=== PATIENT | female | born 1945 | race Caucasian/White ===

== ENCOUNTER 2017-07-29 15:51 | Outpatient (CLI) | payer MEDICARE, OTHER ==
--- NOTE | 2017-07-30 10:37 | MRI ---
MRI CERVICAL SPINE WITHOUT CONTRAST: HISTORY: Neck pain with pain radiating down both arms and hands. Cervical radiculopathy. COMPARISON: None. TECHNIQUE: A cervical spine MRI was performed without contrast administration. Multisequential, multiplanar im aging was performed. FINDINGS: Appropriate T1 marrow signal intensity of the cervical vertebrae. Cervical spine vertebral body hei ght is maintained. No fracture. No significant STIR hyperintensity to suggest vertebral body edema or ligamentous injury. The visualized brain parenchyma, cervical-medullary junction, cervical cord, and upper thoracic cord have normal size and signal intensity. C2-C3: No significant disk osteophyte complex. No significant central canal stenosis. The neural foramina are patent. C3-C4: No significant disk osteophyte complex. No significant central canal stenosis. Degenerativ e change in the bilateral uncovertebral joints results in mild bilateral foraminal narrowing. C4-C5: Broad-based disk osteophyte complex abuts the thecal sac. No significant central canal sten osis. Degenerative changes in the bilateral uncovertebral joints results in moderate right and mild to moderate left foraminal narrowing. C5-C6: Broad-based disk osteophyte complex abuts the thecal sac. No high grade central canal steno sis. Degenerative changes of the bilateral uncovertebral joint results in moderate right and mild l eft foraminal narrowing. C6-C7: There is a broad-based disk osteophyte complex without significant central canal stenosis. Degenerative changes of the right uncovertebral joint result in moderate right foraminal narrowing. Mild left foraminal narrowing. C7-T1: No significant disk osteophyte complex. No significant central canal stenosis. The neural foramina are patent. IMPRESSION: Degenerative changes in the cervical spine as above. POS: [facility]
== END 2017-07-29 15:52 | disposition home or self-care (01) ==
LOC: MRI 15:51 → MERGE 16:15
PROVIDERS: ATTEND Neurological Surgery
DX: M47.22 Other spondylosis with radiculopathy, cervical region (principal)
CPT/HCPCS: 36415; 72141; 80053; 85027

== ENCOUNTER 2017-08-02 09:26 | Outpatient (CLI) | payer MEDICARE, OTHER ==
--- NOTE | 2017-08-02 10:32 | BD ---
BONE DENSITOMETRY USING DEXA: Date: 08/02/17 HISTORY: Postmenopausal screening for osteoporosis. FINDINGS: Lumbar Spine: BMD (g/cm2) L1 0.967 T-Score: -0.2 Z-Score: 1.8 L2 1.245 T-Score: 2.0 Z-Score: 4.2 L3 1.194 T-Score: 1.0 Z-Score: 3.4 L4 1.246 T-Score: 1.7 Z-Score: 4.1 L1-L4 1.167 T-Score: 1.1 Z-Score: 3.4 Femoral Neck: 0.828 T-Score: -0.2 Z-Score: 1.8 Total Femur: 0.894 T-Score: -0.4 Z-Score: 1.3 IMPRESSION: Normal bone mineral density. No evidence of osteopenia/osteoporosis. POS: [facility]
== END 2017-08-02 09:27 | disposition home or self-care (01) ==
LOC: MAMMO 09:26
PROVIDERS: ATTEND Family Medicine
DX: Z13.820 Encounter for screening for osteoporosis (principal); M85.89 Other specified disorders of bone density and structure, multiple sites
CPT/HCPCS: 77080

== ENCOUNTER 2017-08-25 14:48 | Outpatient (CLI) | payer MEDICARE, OTHER ==
[2017-08-25 16:21] LABS: Hematocrit 34.4 % (36.0-47.0); Mean Platelet Volume 7.7 fL (7.4-10.4); Red Blood Cell (RBC) Count 3.16 mill/uL (4.20-5.40); White Blood Cell (WBC) Count 7.3 thou/uL (4.8-10.8)
[2017-08-25 16:33] LABS: Anion Gap 12 mmol/L (10-20); BUN (Urea Nitrogen) 19 mg/dL (9.8-20.1); Calc. Creatinine Clearance 0 mL/min (70-130); Calcium 9.5 mg/dL (7.8-10.44); Carbon Dioxide 26 mmol/L (23-31); Chloride 108 mmol/L (98-107); Estimated GFR-MDRD 66
== END 2017-08-25 14:49 | disposition home or self-care (01) ==
LOC: LABBT 14:48
PROVIDERS: ATTEND Neurological Surgery
DX: Z01.818 Encounter for other preprocedural examination (principal); M54.12 Radiculopathy, cervical region
CPT/HCPCS: 80048; 85027

== ENCOUNTER 2017-10-12 12:37 | Outpatient (CLI) | payer MEDICARE, OTHER ==
--- NOTE | 2017-10-12 14:02 | RAD ---
CERVICAL SPINE THREE VIEWS: HISTORY: Surgery in August 2017. COMPARISON: MRI from 07/29/2017. FINDINGS: The patient is status post ACDF at C4-C6. There are diskectomy changes with early osseous incorporat ion. No displacement of the disk cages. Moderate facet arthrosis at C3-C4 and C4-C5. No listhesis. Moderate degenerative disk space disease and sclerosis with osteophyte formation at C6-C7. There are surgical clips in the left neck. IMPRESSION: Satisfactory appearance of anterior cervical diskectomy and fusion at C4-C6 without hardware complica tion. POS: [facility]
== END 2017-10-12 12:38 | disposition home or self-care (01) ==
LOC: TBSIIMAG 12:37
PROVIDERS: ATTEND Neurological Surgery
DX: M54.12 Radiculopathy, cervical region (principal); Z98.1 Arthrodesis status
CPT/HCPCS: 72040

== ENCOUNTER 2017-12-20 15:34 | Outpatient (CLI) | payer MEDICARE, OTHER | END 2017-12-20 15:35 | disposition home or self-care (01) | LOC: BICMAMMO 15:34 | PROVIDERS: ATTEND Family Medicine | DX: Z12.31 Encounter for screening mammogram for malignant neoplasm of breast (principal); N64.89 Other specified disorders of breast | CPT/HCPCS: 77063; 77067 ==

== ENCOUNTER 2017-12-21 07:48 | Outpatient (CLI) | payer MEDICARE, OTHER ==
[2017-12-21] MEDS ORDERED: Gadobenate Dimeglumine 529 MG/1 ML (20ML VIAL) ONE (12:52)
--- NOTE | 2017-12-21 13:07 | MRI ---
MRI LUMBAR SPINE WITH AND WITHOUT IV CONTRAST: 12/21/2017 HISTORY: Lumbar radiculopathy. The patient states right leg and back pain for a few months. History of back surgery in June. COMPARISON: Noncontrast MRI lumbar spine on 06/10/2017. FINDINGS: There is an increased T2-weighted signal intensity structure seen at the anterior aspect, inferior po le, right kidney, demonstrating characteristics most consistent with a cyst. This was also present o n the prior MRI examination, as well as CT abdomen on 05/10/2015. There is partial visualization of intrahepatic and extrahepatic biliary ductal dilatation; however, C T abdomen on 05/10/2015 demonstrated post cholecystectomy changes with biliary ductal dilatation on t hat exam. Findings were likely related to reservoir effect. There is question of a tiny filling def ect within a dilated posterior segment right hepatic duct, which could potentially represent a tiny c alculus within the duct, although it is difficult to adequately evaluate on this exam. The conus medullaris is normal in appearance and terminates at the level of the L1 vertebral body. There is a rounded focus of increased T1 and T2 weighted signal intensity present in the T11 vertebra l body, most compatible with a hemangioma. Endplate degenerative changes are seen at multiple levels with degenerative changes again seen throughout the lumbar spine. There is right convex scoliosis o f the lumbar spine. Tarlov cysts are again seen, posterior to the S2 and S3 vertebral bodies. Again noted is mild aneurysmal dilatation of the infrarenal abdominal aorta, which measures 3.4 cm in greatest transverse dimension. This was also present on the CT exam in 2014. L1-L2: There is mild broad-based disk bulge, resulting in very slight effacement of the ventral aspe ct of the thecal sac. The neural foramina are patent. L2-L3: There is loss of intervertebral disk height. A broad-based disk osteophyte complex is again present. There is mild left-sided neural foraminal narrowing with only minimal encroachment of the r ight neural foramen, which is a stable finding. L3-L4: There is loss of intervertebral disk height. There is a broad-based disk osteophyte complex with moderate facet hypertrophic changes and ligamentous thickening. There is moderate narrowing of the central spinal canal with mild to moderate left-sided neural foraminal narrowing and mild right-s ided neural foraminal narrowing. L4-L5: Again noted is a broad-based disk osteophyte complex and facet hypertrophic changes. Promine nt endplate degenerative changes are present at this level. There is mild left-sided neural foramina l narrowing with moderate to severe right-sided neural foraminal narrowing, but the degree of foramin al narrowing is similar to the prior study. L5-S1: There is loss of intervertebral disk height with endplate degenerative changes. There is a b road-based disk osteophyte complex and facet degenerative changes. A small central disk protrusion i s present. This central disk protrusion does result in mild mass effect on the central aspect of the ventral portion of the thecal sac. Moderate bilateral neural foraminal narrowing is present, greate r on the left. There is a right laminotomy defect at L5 with enhancement in this region, suggesting scar tissue seen posterior to the right lamina and along the spinous process on the right; however, this enhancement does not extend into the central canal, and this area of enhancement is most suggestive of scarring. Similar enhancement is seen at the L5-S1 level, again related to scarring in the soft tissues moving worker ior to the L5 vertebral body. IMPRESSION: 1. Multilevel degenerative changes, which have not progressed when compared to the prior exam in 201 7. 2. Post surgical changes at the L4-L5 level, related to laminotomy defect with enhancement in the so ft tissues posterior to the vertebral body on the right, related to scarring. 3. Right convex scoliosis of the lumbar spine. 4. Infrarenal abdominal aortic aneurysm, seen on prior CT exam in 2017. 5. Right renal cyst. POS: [facility]
== END 2017-12-21 07:49 | disposition home or self-care (01) ==
LOC: MRI 07:48
PROVIDERS: ATTEND Neurological Surgery
DX: M47.26 Other spondylosis with radiculopathy, lumbar region (principal); I71.4 Abdominal aortic aneurysm, without rupture; N28.1 Cyst of kidney, acquired; Z98.1 Arthrodesis status
CPT/HCPCS: 72158; 82565; A9579

== ENCOUNTER 2017-12-23 10:49 | Outpatient (CLI) | payer MEDICARE, OTHER ==
--- NOTE | 2017-12-23 13:55 | CT ---
CT LUMBAR SPINE WITHOUT CONTRAST: Date: 12/23/17 HISTORY: Lumbar radiculopathy. Low back pain with fall from kitchen cabinet 2 years ago. Previous surgery. COMPARISON: None. CORRELATION: Lumbar spine MRI dated 12/21/17. TECHNIQUE: Lumbar spine CT is performed without contrast. Sagittal and coronal reformatted images are submitted for interpretation. FINDINGS: Visualized lung bases are clear. No retroperitoneal mass, lymphadenopathy, or hematoma. Previous kavya atric surgical changes are suspected. Gallbladder is surgically absent. Nonobstructing calcifications in the right renal pelvis. Symmetric attenuation of the psoas muscles. No retroperitoneal mass, lymp hadenopathy, or hematoma. There is atherosclerosis of an upper normal abdominal aorta, incompletely e valuated. Vacuum disc phenomenon at L2-L3, L4-L5, and L5-S1. 3.3 mm of anterolisthesis of L3 upon L4. Lumbar spine vertebral body height is maintained. No fracture. There are degenerative changes involvi ng the posterior elements at L3, L4, and L5. Limited evaluation of the contents of the central spinal canal and neural foramina due to technique. Please refer to recent MRI for further detail. T11-T12 and T12-L1: No high grade central canal stenosis or high grade foraminal narrowing. L1-L2: No high grade central canal stenosis or high grade foraminal narrowing. L2-L3: Vacuum disc phenomenon. Generalized disc bulge. Mild central canal stenosis. Right neural foramen is patent. Mild left foraminal narrowing. L3-L4; Mild loss of disc space height. Generalized disc bulge, ligamentum flavum thickening, and facet hyper trophy result in mild central canal stenosis. Right neural foramen is patent. Mild to moderate left f oraminal narrowing. L4-L5: Vacuum disc phenomenon. Generalized disc bulge. No high grade central canal stenosis. Severe right an d mild left foraminal narrowing. L5-S1: Disc desiccation with severe loss of disc space height. Generalized disc bulge without high grade vasyl tral canal stenosis. Moderate bilateral foraminal narrowing. There is hypodensity in the central aspect of the S1 level, compatible with a prominent thecal sac. IMPRESSION: Degenerative changes of the lumbar spine as above. Please refer to lumbar spine MRI for further detai l. POS: [facility]
== END 2017-12-23 10:50 | disposition home or self-care (01) ==
LOC: TBSIIMAG 10:49
PROVIDERS: ATTEND Neurological Surgery
DX: M47.26 Other spondylosis with radiculopathy, lumbar region (principal)
CPT/HCPCS: 72131

== ENCOUNTER 2017-12-28 14:22 | Outpatient (CLI) | payer MEDICARE, OTHER | END 2017-12-28 14:23 | disposition home or self-care (01) | LOC: BICMAMMO 14:22 | PROVIDERS: ATTEND Family Medicine | DX: N64.89 Other specified disorders of breast (principal) | CPT/HCPCS: 77065; G0279 ==

== ENCOUNTER 2018-02-04 13:01 | Inpatient (IN) | payer MEDICARE, OTHER ==
--- NOTE | 2018-02-04 13:19 | CT ---
CT OF HEAD NONCONTRAST: Clinical history: Left sided facial droop and slurred speech. Comparison: 08-05-[address] FINDINGS: There is a focal region of encephalomalacia localizing to the posterior division of the left MCA terr itory with surrounding white matter hypointensity indicating additional gliosis. No evidence of intra cranial hemorrhage or mass effect or midline shift. Ventricular system is within normal limits of siz e. IMPRESSION: 1. Encephalomalacia of the left cerebral hemisphere. 2. No acute intracranial lesion or mass effect. 3. Telephone call with findings placed to ER physician, Dr. Becerril, at 1313 hours 02-04-18. Code CR POS: [facility]
--- NOTE | 2018-02-04 13:40 | CT ---
CTA HEAD WITH 3D VOLUME RENDERING CTA NECK WITH 3D VOLUME RENDERING: CLINICAL HISTORY: Stroke, left side facial droop, slurred speech. FINDINGS: CT imaging of the head and neck performed. There is atherosclerosis at the imaged aortic arch and in volving the origins of the great vessels. No high-grade stenosis or occlusion of the great vessel or igins is seen. There is mild atherosclerotic stenosis of the proximal aspect of the left subclavian artery by soft plaque. The bilateral vertebral arteries reveal no high-grade stenosis or occlusion w ith convergence into a patent basilar artery. There is mild calcification at the origin of the right common carotid artery and there is calcified and noncalcified plaque suggesting mild stenosis at the distal right common carotid artery. The origin of the left common carotid artery is not visualized. The imaged left common carotid artery reveals no high-grade stenosis or occlusion. Evaluation of e ach cervical ICA reveals no significant stenosis or occlusion. There is atherosclerosis/plaque forma tion at each carotid bulb. There is calcification at each carotid siphon. Correlate for history of prior left carotid endarterectomy. The bilateral M1 segments are patent. Relative symmetric contrast opacification of distal MCA branches is seen bilaterally. There is no high-grade stenosis of the bi lateral MUKESH or ASSISTANT SURVEYOR. Incidental note of multifocal patchy opacification of the right upper lung zone indicating infectious /inflammatory process, although incompletely evaluated. Correlate clinically. Incidental note of an terior metallic fusion of the cervical spine. IMPRESSION: 1. No high-grade focal stenosis or thrombotic occlusion of the major arterial system head and neck. Scattered atherosclerosis is present. 2. Incidental note of multifocal patchy consolidation of the imaged upper right lung zone favoring i nfectious/inflammatory process. Correlate clinically. POS: [facility]
[2018-02-04 13:47] LABS: Hemoglobin 10.1 g/dL (12.0-16.0); Mean Platelet Volume 7.9 fL (7.4-10.4); Platelet Count 181 thou/uL (130-400); Red Blood Cell (RBC) Count 2.95 mill/uL (4.20-5.40); White Blood Cell (WBC) Count 14.8 thou/uL (4.8-10.8)
[2018-02-04 13:48] LABS: #Lymphocytes 0.2 thou/uL (1.20-3.40); #Monocytes 1.2 thou/uL (0.11-0.59); #Neutrophils 13.3 thou/uL (1.40-6.50); %Basophils 0.2 % (0.0-1.0); %Eosinophils 0.2 % (0.0-10.0); %Lymphocytes 1.5 % (21.0-51.0); %Monocytes 8.2 % (0.0-10.0)
[2018-02-04 13:53] LABS: INR-International Normal Ratio 1.2; Prothrombin Time 15.8 SEC (12.0-14.7)
[2018-02-04 14:08] LABS: ALT (SGPT) 7 U/L (8-55); AST (SGOT) 18 U/L (5-34); Alkaline Phosphatase 70 U/L (40-150); Anion Gap 12 mmol/L (10-20); BUN (Urea Nitrogen) 16 mg/dL (9.8-20.1); Bilirubin, Total 0.3 mg/dL (0.2-1.2); CK (CPK) 44 U/L (29-168); Calc. Creatinine Clearance 0 mL/min (70-130); Calcium 8.4 mg/dL (7.8-10.44); Carbon Dioxide 21 mmol/L (23-31); Chloride 107 mmol/L (98-107); Estimated GFR-MDRD 44; Globulin 2.3 g/dL (2.4-3.5); Glucose 172 mg/dL (83-110); Potassium 3.3 mmol/L (3.5-5.1); Protein, Total 5.3 g/dL (6.0-8.3); Sodium 137 mmol/L (136-145)
[2018-02-04 14:10] LABS: MDiff Complete? YES; Macrocytosis SLIGHT = 6-15 cells (100X) (0-5/hpf); Mean Corpuscular HGB CONC 32.1 g/dL (32.0-36.0); Mean Corpuscular Hemoglobin 34.1 pg (27.0-31.0); PLT Morphology Comment Appears Adequate
[2018-02-04 14:17] LABS: CKMB 0.6 ng/mL (0-6.6); Troponin I 0.019 ng/mL (< 0.028)
--- NOTE | 2018-02-04 14:25 | RAD ---
PORTABLE CHEST 1 VIEW: DATE: 02/04/18. TIME: 2:03 p.m. HISTORY: Infiltrate on CT. FINDINGS: The heart size is normal. The lungs are expanded. There are patchy infiltrates in the right mid and lower lung aleman. No pneumothoraces or pleural effusions are seen. IMPRESSION: Findings are suspicious for right-sided pneumonia. POS: [facility]
[2018-02-04] MEDS ORDERED: Azithromycin 500 MG VIAL ONE (14:36)
[2018-02-04] MEDS ORDERED: Acetaminophen 500 MG TAB ONE (15:25)
[2018-02-04] MEDS ORDERED: Ondansetron ODT 4 MG TAB SL PRN (15:57)
[2018-02-04] MEDS ORDERED: Ondansetron HCl/PF 4 MG/2 ML Vial IVP PRN (15:57)
[2018-02-04] MEDS ORDERED: Sodium Chloride 0.9% 1,000 ML IV SCH (15:57)
[2018-02-04] MEDS ORDERED: Acetaminophen 325 MG TAB PO PRN (15:57)
--- NOTE | 2018-02-04 15:57 | PDOC.FPRHP ---
- History of Present Illness Chief Complaint: Severe chills, Slurred Speech, Dizzy, Weak History of Present Illness: This is a 72 yo female who comes in with complaints of waking up and having nonunderstandable speech, severe chills, dizziness, and weakness. Sister reports her looking more tired yesterday. Pt reports having cough for last month. Says had productive clear sputum. Reports that last few days having increased SOB with exertion. Did not think much of it, thought it was sinuses. Pt has pmh of Stroke in 2006 in which she has some R. sided defecits. Family says she does get slurred speech when she gets tired. yet, they stated the speech change today was much worse and different. Pt also has hx of CEA of left carotid and having stenosis in R. carotid but no severe enough for surgery. She denied any fevers. Pt reports having n/v/d/c but that it is chronic and related to multiple abdominal surgeries and chron's dz. Denied any chest pain. Denied any nasal congestion. Reports being week. ED Course: 2 boluses fluid - Allergies/Adverse Reactions Allergies Allergy/AdvReac Type Severity Reaction Status Date / Time metoclopramide [From Reglan] Allergy Intermediate "MAKES HER Verified 07/05/17 14:25 HYPER" metronidazole [From Flagyl] Allergy Intermediate DIZZY, Verified 07/05/17 14:25 LIGHTHEADED Penicillins Allergy Intermediate Rash Verified 07/05/17 14:25 pregabalin [From Lyrica] Allergy Intermediate MOUTH Verified 07/05/17 14:25 SWELLING - Home Medications Medication Instructions Recorded Confirmed Type Aspirin [Aspir-Low] 81 mg PO DAILY 07/05/17 02/04/18 History Calcium Carbonate [Calcium] 1,500 mg PO DAILY 07/05/17 02/04/18 History Dicyclomine [Bentyl] 20 mg PO QID 07/05/17 02/04/18 History Diphenoxylate HCl/Atropine 2 tab PO QID PRN 07/05/17 02/04/18 History [Lomotil] Estradiol 1 mg PO DAILY 07/05/17 02/04/18 History Hyoscyamine Sulfate 0.125 mg PO Q4H PRN 07/05/17 02/04/18 History Ipratropium 0.06% Nasal Inhale 2 spray INH TID 07/05/17 02/04/18 History [Atrovent 0.06% Nasal [place]] Levothyroxine Sodium 50 mcg PO DAILY 07/05/17 02/04/18 History Loperamide HCl [Imodium A-D] 2 mg PO PRN PRN 07/05/17 02/04/18 History Metoprolol Tartrate [Metoprolol 12.5 mg PO BID 07/05/17 02/04/18 History Tartrate] Mirtazapine [Remeron] 15 mg PO HS 07/05/17 02/04/18 History Multivitamin [Daily Multiple 1 each PO DAILY 07/05/17 02/04/18 History Vitamin] Omeprazole [Omeprazole] 40 mg PO DAILY 07/05/17 02/04/18 History Ramipril [Altace] 5 mg PO HS 07/05/17 02/04/18 History Rosuvastatin Calcium [Rosuvastatin 20 mg PO HS 07/05/17 02/04/18 History Calcium] Sertraline HCl [Zoloft] 100 mg PO DAILY 07/05/17 02/04/18 History Tramadol HCl [Tramadol HCl] 50 mg PO BID PRN 07/05/17 02/04/18 History azaTHIOprine [Azathioprine] 50 mg PO DAILY 07/05/17 02/04/18 History - History PMHx:Chron's Dz, Aneurysm in Stomach, PARIKH 2003, Stroke 2006 w/ R. sided weakness , Macrocytic Anemia of unknown cause, Depression PSHx: 1/ stomach removed (90s), Large Bowel Resection 2010 due to adhesions, CEA of Left carotid, Back Surgery 2016, Neck Surgery 2016, Cholecystectomy, Hysterectomy, FHx: Insignificant Social: Smoked 50+ years, quit 6 yrs ago. No alcohol, No illicit drug use - Review of Systems General: reports: fever/chills, fatigue. denies: weight/appetite/sleep changes , night sweats Eyes: denies: eye pain, vision changes, other ENT: denies: nasal congestion, rhinorrhea, other Respiratory: reports: cough, shortness of breath. denies: exercise intolerance , other Cardiovascular: denies: chest pain, palpitation, edema, paroxysmal nocturnal dyspnea, orthopnea Gastrointestinal: reports: nausea, vomiting, diarrhea, constipation, abdominal pain. denies: GI bleeding Genitourinary: denies: incontinence, dysuria, polyuria, discharge Skin: denies: rashes, lesions, jaundice, itching Musculoskeletal: denies: pain, tenderness, stiffness, swelling, arthritis/ arthralgias, other Neurological: denies: numbness, syncope, seizure, weakness, other Psychological: reports: depression. denies: anxiety, other - Vital signs T 97.7, P 80, RR 17, O2 96% on 2L. BP 92/50 - Physical Exam Constitutional: NAD, awake, alert and oriented, well developed HEENT: normocephalic and atraumatic, PERRLA, EOMI, conjunctiva clear, MMM Neck: supple, trachea midline, no LAD, no JVD, no thyromegaly, no bruits Chest: no-tender to palpation, no lesions Heart: RRR, normal S1/S2, no murmurs/rubs/gallops, pulses present, no edema -Lungs: Mild wheezing noted. Decreased breath sounds noted on R. side. R. side with crackles Abdomen: soft, non-tender, bowel sounds present, no masses/distention Neurological: normal sensation -Neurological: CN 7 affected. L. side facial droop noted. Some slow speech Skin: no rash/lesions, good turgor, capillary refill <2 seconds Heme/Lymphatic: no unusual bruising or bleeding Psychiatric: normal mood and affect, good judgment and insight, intact recent and remote memory FMR H&P: Results - Labs Result Diagrams: 02/04/18 13:36 02/04/18 13:36 Lab results: WBC 14.8 thou/uL (4.8-10.8) H 02/04/18 13:36 Hgb 10.1 g/dL (12.0-16.0) L 02/04/18 13:36 Hct 31.4 % (36.0-47.0) L 02/04/18 13:36 MCV 106.0 fl (81.0-99.0) H 02/04/18 13:36 Plt Count 181 thou/uL (130-400) 02/04/18 13:36 Neutrophils % 90.0 % (42.0-75.0) H 02/04/18 13:36 Sodium 137 mmol/L (136-145) 02/04/18 13:36 Potassium 3.3 mmol/L (3.5-5.1) L 02/04/18 13:36 Chloride 107 mmol/L (98-107) 02/04/18 13:36 Carbon Dioxide 21 mmol/L (23-31) L 02/04/18 13:36 BUN 16 mg/dL (9.8-20.1) 02/04/18 13:36 Creatinine 1.21 mg/dL (0.6-1.1) H 02/04/18 13:36 Glucose 172 mg/dL (83-110) H 02/04/18 13:36 Lactic Acid 3.1 mmol/L (0.5-2.2) H 02/04/18 13:36 Calcium 8.4 mg/dL (7.8-10.44) 02/04/18 13:36 Total Bilirubin 0.3 mg/dL (0.2-1.2) 02/04/18 13:36 AST 18 U/L (5-34) 02/04/18 13:36 ALT 7 U/L (8-55) L 02/04/18 13:36 Alkaline Phosphatase 70 U/L (40-150) 02/04/18 13:36 Creatine Kinase 44 U/L (29-168) 02/04/18 13:36 CK-MB (CK-2) 0.6 ng/mL (0-6.6) 02/04/18 13:36 Serum Total Protein 5.3 g/dL (6.0-8.3) L 02/04/18 13:36 Albumin 3.0 g/dL (3.4-4.8) L 02/04/18 13:36 - Radiology Interpretation Chest x-ray Status: image reviewed by me, report reviewed by me (cxray concerning for r. side pna) CT scan - head Status: image reviewed by me, report reviewed by me (CT head neg, old stroke findings. CTA head neck shows no acute blockage or change) FMR H&P: A/P - Problem List (1) Sepsis Current Visit: Yes Status: Acute Code(s): A41.9 - SEPSIS, UNSPECIFIED ORGANISM (2) Community acquired pneumonia Current Visit: Yes Status: Acute Code(s): J18.9 - PNEUMONIA, UNSPECIFIED ORGANISM (3) History of tobacco use Current Visit: Yes Status: Acute Code(s): Z87.891 - PERSONAL HISTORY OF NICOTINE DEPENDENCE (4) Acute Crohn's disease Current Visit: Yes Status: Acute Code(s): K50.90 - CROHN'S DISEASE, UNSPECIFIED, WITHOUT COMPLICATIONS (5) History of CVA with residual deficit Current Visit: Yes Status: Acute Code(s): I69.30 - UNSPECIFIED SEQUELAE OF CEREBRAL INFARCTION (6) Macrocytic anemia Current Visit: Yes Status: Acute Code(s): D53.9 - NUTRITIONAL ANEMIA, UNSPECIFIED - Plan 1. sepsis 2/2 CAP-no hx of recent hospitalization, coming from home, Azithro and Rocephin. Urine Strep/Legionella pending. will adjust tx accordinlgy Received 2 boluses in ER. NS@150 ml/hr. Will continue to monitor HR Will follow lactic acid for sepsis CBC am -Cxray shows concern for R. side infectious process 2. Possible CVA vs. TIA-L. sided facial droop with speech defecit reported by family Will obtain MRI in AM given high risk with previous known CAD and hx of CVA. -consult neurology -ON ASA and statin- continue for now allow for permissive htn to 220/120. check FLP, A1c, TSH 3. Chrons-not in exac, will continue home meds 4. Hypothyroidism-continue home synthroid 5. Depression-continue home meds 6. CAD-continue statin, asa 7. Hld-continue statin 8. Htn- hold for now given above FMR H&P: Upper Level - Pertinent history Pt is a pleasant 72 yo F w/PMH of Chron's, Hx of [place], CVA who presents to the ED with 1 mo hx of cough and 1 day hx of L sided facial droop. Here is ED with sister and niece, they report that she has been very weak and hx of CVA with R sided deficit but noticed L facial droop and were worried about a stroke so brought her in. Reports wet cough that has been worsening, subjective chills, Tmax of 101 in ED. Denies PND, orthopnea, reports some diffuse mild abdominal pain on exam but non-tender. CXR in ED shows R sided consolidation. Brain CT and CTA head/neck negative. Hx of L carotid endarterectomy. - Pertinent findings Tmax: 101 General: Appears in no distress, tired, coughing, appropriate hygiene and approx stated age Neck: L>R bruit, but no palpable thrill Cardiac: RRR Lungs: R base-rales, rhonchi Abdomen: soft, nontender, good bs Extremities: no cyanosis, clubbing, edema Neuro: CN II-XII intact, no cerebellar findings with testing - Plan Date/Time: 02/04/18 1556 I, Anideniz Abreu, have evaluated this patient and agree with findings/plan as outlined by development intern resident. Pertinent changes/additions are listed here. Pertinent A/P: 1. sepsis 2/2 CAP-no hx of recent hospitalization, coming from home, will continue treatment from ED of kevin and sam, will administer fluids for sepsis and recheck lactate in 3-4 hrs. Morning labs to recheck WBC 2. Possible CVA vs. TIA-do not appreciate any abnormalities on neuro exam- questionable L bottom labial droop. Will obtain MRI in AM given high risk with previous known CAD and hx of CVA. Will consult neuro if CVA is evident, for now allow for permissive htn to 220/120. Risk stratify check FLP, A1c, TSH 3. Chrons-not in exac, will continue home meds 4. Hypothyroidism-continue home synthroid 5. Depression-continue home meds 6. CAD-continue statin, asa 7. Hld-continue statin 8. Htn- hold for now given above
[2018-02-04] MEDS ORDERED: Diphenoxylate HCl/Atropine Tablet PO PRN (16:10)
[2018-02-04] MEDS ORDERED: Loperamide HCl 2 MG CAP PO PRN (16:10)
[2018-02-04] MEDS ORDERED: traMADol HCl 50 MG TAB PO PRN (16:10)
[2018-02-04] MEDS ORDERED: cefTRIAXone\\ROCEPHIN 1 GM in Sodium Chloride 0.9% 100 ML IVPB SCH (16:15)
[2018-02-04] MEDS ORDERED: ISOVUE-370 76%-LOCM 1 ML ONE (16:26)
[2018-02-04] MEDS ORDERED: Azithromycin 500 MG in Sodium Chloride 0.9% 250 ML 250 ML IVPB ONE (16:30)
[2018-02-04] MEDS: Sodium Chloride 0.9% 1,000 ML IV SCH (16:56)
[2018-02-04] MEDS: Dicyclomine 20 MG TAB PO SCH ×2 (17:01→21:19)
[2018-02-04 17:11] LABS: Legionella Urinary Ag Negative (Negative); Strep pneumo Urine Ag NEGATIVE (NEGATIVE)
[2018-02-04 17:52] LABS: Lactic Acid 2.5 mmol/L (0.5-2.2)
[2018-02-04 19:24] VITALS: BMI 20.4
[2018-02-04] MEDS: Rosuvastatin 20 MG TAB PO SCH ×2 (21:19)
[2018-02-04] MEDS: Mirtazapine 15 MG TAB PO SCH (21:19)
[2018-02-05] MEDS: Sodium Chloride 0.9% 1,000 ML IV SCH ×2 (00:09→07:23)
[2018-02-05 04:52] LABS: #Eosinphils 0.3 thou/uL (0.0-0.7); #Lymphocytes 1.2 thou/uL (1.20-3.40); #Monocytes 1.1 thou/uL (0.11-0.59); #Neutrophils 15.3 thou/uL (1.40-6.50); %Basophils 0.2 % (0.0-1.0); %Eosinophils 1.6 % (0.0-10.0); %Lymphocytes 6.9 % (21.0-51.0); %Monocytes 6.2 % (0.0-10.0); %Neutrophils 85.1 % (42.0-75.0); Hemoglobin 9.3 g/dL (12.0-16.0); Mean Corpuscular HGB CONC 33.1 g/dL (32.0-36.0); Mean Corpuscular Hemoglobin 34.8 pg (27.0-31.0); Mean Platelet Volume 7.9 fL (7.4-10.4); Platelet Count 160 thou/uL (130-400); RBC Distribution Width 12.9 % (11.5-14.5); Red Blood Cell (RBC) Count 2.66 mill/uL (4.20-5.40); White Blood Cell (WBC) Count 17.9 thou/uL (4.8-10.8)
[2018-02-05 04:59] LABS: Hemoglobin A1c 4.9 % (4.0-6.0)
[2018-02-05 05:15] LABS: ALT (SGPT) 9 U/L (8-55); AST (SGOT) 19 U/L (5-34); Alkaline Phosphatase 72 U/L (40-150); Anion Gap 9 mmol/L (10-20); BUN (Urea Nitrogen) 15 mg/dL (9.8-20.1); Bilirubin, Total 0.2 mg/dL (0.2-1.2); Calc. Creatinine Clearance 57 mL/min (70-130); Calcium 8.1 mg/dL (7.8-10.44); Carbon Dioxide 22 mmol/L (23-31); Chloride 113 mmol/L (98-107); Cholesterol 77 mg/dl (< 200 Desired); Estimated GFR-MDRD 73; Globulin 2.2 g/dL (2.4-3.5); Glucose 95 mg/dL (83-110); HDL Cholesterol 39 mg/dL (>60 Neg Risk); LDL Cholesterol, Calculated 32 mg/dL; Potassium 3.6 mmol/L (3.5-5.1); Protein, Total 5.2 g/dL (6.0-8.3); Sodium 140 mmol/L (136-145); Triglycerides 28 mg/dL (Less than 150)
[2018-02-05] MEDS: Levothyroxine Sodium 50 MCG TAB PO SCH (05:15)
--- NOTE | 2018-02-05 05:42 | PDOC.FM ---
- Subjective Subjective: Stefanie Madden seen at bedside this morning. She states that she is doing much better today compared to yesterday. States that she felt terrible yesterday morning with chills and weakness. States that her slurred speech has improved and it is common for her to get slurred speech when she is weak or ill. She denies any acute events overnight, denies fever, chills, chest pain, dyspnea, n/ v. - Objective MAR Reviewed: Yes Vital Signs & Weight: Vital Signs (12 hours) Temp Pulse Resp BP Pulse Ox 02/05/18 03:44 97.6 F 76 16 99/64 91 L 02/04/18 23:37 97.5 F L 72 16 112/56 L 94 L 02/04/18 21:26 97 02/04/18 21:18 97.5 F L 72 16 97 02/04/18 19:18 97.6 F 74 18 99/43 L 89 L Weight Weight 55.61 kg I&O: 02/03/18 02/04/18 02/05/18 06:59 06:59 06:59 Intake Total 2697 Output Total 400 Balance 2297 Result Diagrams: 02/05/18 04:36 02/05/18 04:36 <Lenny Harris - Last Filed: 02/05/18 07:53> - Objective Vital Signs & Weight: Vital Signs (12 hours) Temp Pulse Pulse Pulse Resp BP BP 02/05/18 16:00 98.5 F 62 14 02/05/18 11:30 98.0 F 79 20 02/05/18 10:46 84 83 124/65 139/75 02/05/18 08:31 98.4 F 75 16 02/05/18 07:26 98.4 F 75 16 BP Pulse Ox 02/05/18 16:00 137/74 95 02/05/18 11:30 123/59 L 93 L 02/05/18 10:46 02/05/18 08:31 90 L 02/05/18 07:26 122/61 90 L Weight Admit Weight 54.068 kg Weight 55.61 kg I&O: 02/04/18 02/05/18 02/06/18 06:59 06:59 06:59 Intake Total 2697 Output Total 400 Balance 2297 Result Diagrams: 02/05/18 04:36 02/05/18 04:36 <Lewis Aleman - Last Filed: 02/05/18 16:59> Phys Exam - Physical Examination Constitutional: NAD HEENT: moist MMs, sclera anicteric Neck: no nodes, supple, full ROM Respiratory: no wheezing, no rales, no rhonchi, clear to auscultation bilateral Cardiovascular: RRR, no significant murmur Gastrointestinal: soft, non-tender, no distention Musculoskeletal: no edema, pulses present Neurological: non-focal, normal sensation, moves all 4 limbs Psychiatric: normal affect, A&O x 3 Skin: cap refill <2 seconds <Lenny Harris - Last Filed: 02/05/18 07:53> Dx/Plan (1) Sepsis Code(s): A41.9 - SEPSIS, UNSPECIFIED ORGANISM Status: Resolved (2) Community acquired pneumonia Code(s): J18.9 - PNEUMONIA, UNSPECIFIED ORGANISM Status: Acute QualifierTitle: Laterality: right (3) History of CVA with residual deficit Code(s): I69.30 - UNSPECIFIED SEQUELAE OF CEREBRAL INFARCTION Status: Acute (4) History of Crohn's disease Code(s): Z87.19 - PERSONAL HISTORY OF OTHER DISEASES OF THE DIGESTIVE SYSTEM Status: Acute - Plan Plan: 1. sepsis 2/2 CAP-no hx of recent hospitalization, coming from home - Azithro and Rocshayhin. Urine Strep/Legionella were negative. - Received 2 boluses in ER. NS@150 ml/hr. Will continue to monitor HR - Lactic Acid downtrending 4.3 to 2.5 - WBC rising to 17.9 this morning with 85% PMNs - Cxray shows concern for R. side infectious process 2. Possible CVA vs. TIA-L. sided facial droop with speech defecit reported by family - Will obtain MRI in AM given high risk with previous known CAD and hx of CVA. - consult neurology if MRI positive - ON ASA and statin- continue - for now allow for permissive htn to 220/120. 3. Chrons-not in exac, will continue home meds 4. Hypothyroidism-continue home synthroid 5. Depression-continue home meds 6. CAD-continue statin, asa 7. Hld-continue statin 8. Htn- hold for now given above <Lenny Harris - Last Filed: 02/05/18 07:53> Attending Addendum - Attending Addendum Date/Time: 02/05/18 1612 I personally evaluated the patient and discussed the management with Dr. Harris. I agree with the History, Examination, Assessment and Plan documented above with any addition or exceptions noted below. Ms. Madden is a 72 y/o female with a PMHx of Left MCA stroke who was admitted for malaise and fatigue with increased right sided weakness, facial droop and slurred speech. She was found to have a RLL community acquired pneumonia and Dr. Reyes (neurology) evaluated her today and he believes her neuro sx's are result of toxic-metabolic encephalpathy due to sepsis from her CAP. She feels much better this a.m. and believes from a neuro standpoint she is back at baseline. Exam: T97.6, P76, R16, BP 99/64, SaO2 91, Wt 55.6 kg HEENT: WNL. mm moist. no appreciable droop to this examiner. Neck: supple no adenopathy. Lungs; CTA with decreased breath sounds R posterior base. Abd: Neg. Ext: No C/E/C/pallor. MRI Brain shows only prior stroke with encephalomalacia. No acute changes. A: Sepsis due to CAP improved. Toxic encephalopathy resolved. P: Continue Rocephin and Azithromycin. Possibly home tomorrow if continued improvement. MD Benny <Lewis Aleman - Last Filed: 02/05/18 16:59>
[2018-02-05 06:49] LABS: Lactic Acid 0.6 mmol/L (0.5-2.2)
[2018-02-05] MEDS: Dicyclomine 20 MG TAB PO SCH ×4 (08:20→20:32)
[2018-02-05] MEDS: Calcium Carbonate 500 MG TAB PO SCH (08:20)
[2018-02-05] MEDS: Multivit, Therapeutic 1 TAB PO SCH (08:20)
[2018-02-05] MEDS: Azithromycin 250 MG TAB PO SCH (08:20)
[2018-02-05] MEDS: azaTHIOprine 50 MG TAB PO SCH (08:20)
[2018-02-05] MEDS: Aspirin 81 mg Enteric Coated Tablet PO SCH (08:20)
[2018-02-05] MEDS ORDERED: Ondansetron HCl/PF 4 MG/2 ML Vial SLOW IVP PRN (10:18)
--- NOTE | 2018-02-05 10:53 | MRI ---
NONCONTRAST ENHANCED MRI IMAGES OF BRAIN: HISTORY: Stroke. FINDINGS: Noncontrast-enhanced MRI images of the brain obtained. Images demonstrate encephalomalacia and gliotic changes seen in the left parietal lobe which appears to be old. No evidence of areas of diffusion restriction seen to suggest acute strokes. Normal flow voids seen in the major intracranial vessels. No significant evidence of intracranial pa thology noted otherwise. IMPRESSION: Old left parietal area of stroke with encephalomalacia and gliotic changes. No acute intracranial pa thology is seen. POS: [facility]
[2018-02-05] MEDS ORDERED: Ondansetron ODT 4 MG TAB PO PRN (10:55)
[2018-02-05] MEDS ORDERED: Sodium Chloride 0.9% 1,000 ML IV SCH (11:00)
[2018-02-05] MEDS ORDERED: cefTRIAXone\\ROCEPHIN 1 GM, Syringe 0.4 ML in Sterile Water 9.6 ML SLOW IVP SCH (14:00)
--- NOTE | 2018-02-05 15:45 | CON ---
DATE OF CONSULTATION: 02/05/2018 REFERRING PROVIDER: Jared Emery M.D. REASON FOR CONSULTATION: Worsening right-sided weakness. HISTORY OF PRESENT ILLNESS: Ms. Madden is a pleasant 72-year-old female who has been cons ulted for evaluation of worsening right-sided weakness. Patient reports that over the past few days, she has been feeling more fatigued and tired. She has noted increasing episodes of weakness all ove r, but more so on the right side than the left. She has also had some chills and chest congestion. She notes that yesterday she had worsening weakness in her right side. She was also having increasin g difficulty with getting her words out and expressing herself. This prompted her to present to the [facility]. She does report that she has a history of stroke in 2006, which resulted in right-sided weakness and aphasia. She had recovered from her stroke and has been doing well up un til yesterday. She mentions that she has been having increasing episodes of pain in her right lower extremity when she is walking or lying down. She also has had numbness that tends to come on when sh e sits for short duration. She has had multiple falls as she is not able to control her right leg at times. She has had cervical and lumbar spine surgery done. Her lumbar spine surgery was done in and then followed by a cervical spine surgery in 08/2017. As she continued to have these episo robert of numbness and pain along with weakness and incoordination, she was supposed to be seen by me in clinic in February. 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 PAST SURGICAL HISTORY: Significant for intestinal surgery, large bowel resection in 2010 due to adhe sions, left carotid endarterectomy, lumbar spine surgery in 06/2017, cervical spine surgery in 7, cholecystectomy, and hysterectomy. FAMILY HISTORY: None significant. SOCIAL HISTORY: She is a smoker of 50+ years, but quit 6 years ago. She denies alcohol use or illic it drug use. CURRENT MEDICATIONS: Please review MAR. ALLERGIES: Include METOCLOPRAMIDE, METRONIDAZOLE, PENICILLIN, PREGABALIN. REVIEW OF SYSTEMS: As mentioned above in the HPI, otherwise negative. PHYSICAL EXAMINATION: VITAL SIGNS: Blood pressure of 123/59, pulse of 79, temperature of 98, respirations are 20, O2 sats of 93% on room air. GENERAL: Well-developed and well-nourished female in no apparent distress. RESPIRATORY: Clear to auscultation bilaterally. CARDIOVASCULAR: Regular rate and rhythm. NEUROLOGIC: Mental status: The patient is awake, alert, and oriented x3. Speech and language: Flu ent speech. Cranial nerves: Pupils are 3 mm and reactive. Visual aleman are intact. External musc les are intact. No nystagmus is noted. Face is symmetric. Tongue and uvula are midline. Motor exa m showed normal tone and bulk with 5/5 strength in both upper and lower extremities. Babinski: Plan tar responses flexion bilaterally. Sensory: Diminished sensation in both lower extremities in dista l proximal gradient. Deep tendon reflexes; 2+ reflexes in both upper extremities and 1+ reflex in jerry th the lower extremities. Romberg is positive. Gait is somewhat wide based gait. LABORATORY DATA: Reviewed, which included CBC, coag panel, CMP, lipid profile, vitamin B12, TSH, CK, CK-MB, CPK, troponin which is significant for white cell count of 17.9, hemoglobin 9.3, hematocrit 2 7.9, MCV of 105, PT of 15.8, INR 1.2, PTT of 25.0, otherwise unremarkable. IMAGING STUDIES: MRI brain without contrast was reviewed, which showed no acute intracranial abnorma lity. CT angiogram of the head and neck were reviewed, which showed no acute intracranial or extracr anial vascular abnormality. Chest x-ray results were reviewed, which showed right-sided pneumonia. IMPRESSION: 1. Right lower lobe pneumonia. 2. Worsening right-sided weakness and aphasia, likely metabolic encephalopathy secondary to #1. 3. Gait imbalance. 4. Right lower extremity numbness and weakness resulting in gait abnormality. Ms. Madden is a 72-year-old -[place] female who presented with the acute worsening of right- sided weakness and aphasia. She was found to have right lower lobe pneumonia. Her MRI brain has bee n negative for acute intracranial pathology. Her symptoms are likely secondary to toxic metabolic ef fect from pneumonia. She continued on current medical management. She has noted right lower extremi ty weakness and numbness and difficulty with gait imbalance with frequent falls that is of unknown et iology. I will see her in my clinic for EMG nerve conduction study of right lower extremity for furt her evaluation. At this time, no further neurological workup needed from my standpoint. Thank you for consultation.
[2018-02-05] MEDS: Rosuvastatin 20 MG TAB PO SCH ×2 (20:32)
[2018-02-05] MEDS: Mirtazapine 15 MG TAB PO SCH (20:32)
[2018-02-05] MEDS ORDERED: traZODone HCl 150 MG TAB PO SCH (23:45)
[2018-02-06 05:33] LABS: ALT (SGPT) 11 U/L (8-55); AST (SGOT) 21 U/L (5-34); Albumin 3.4 g/dL (3.4-4.8); Alkaline Phosphatase 88 U/L (40-150); Anion Gap 9 mmol/L (10-20); BUN (Urea Nitrogen) 10 mg/dL (9.8-20.1); Bilirubin, Total 0.3 mg/dL (0.2-1.2); Calc. Creatinine Clearance 55 mL/min (70-130); Calcium 9.4 mg/dL (7.8-10.44); Carbon Dioxide 24 mmol/L (23-31); Chloride 111 mmol/L (98-107); Estimated GFR-MDRD 70; Globulin 2.8 g/dL (2.4-3.5); Glucose 124 mg/dL (83-110); Potassium 3.7 mmol/L (3.5-5.1); Protein, Total 6.2 g/dL (6.0-8.3); Sodium 140 mmol/L (136-145)
--- NOTE | 2018-02-06 05:51 | PDOC.FM ---
- Subjective Subjective: Stefanie Madden seen at bedside this morning. Doing well, patient asked if she could go home today stating she feels well enough to be at home. She denies any chest pain, dyspnea, fever, chills, n/v. - Objective MAR Reviewed: Yes Vital Signs & Weight: Vital Signs (12 hours) Temp Pulse Resp BP Pulse Ox 02/06/18 03:43 99.0 F 114 H 16 155/77 H 93 L 02/05/18 23:57 98.9 F 102 H 16 159/89 H 96 02/05/18 20:20 98.9 F 102 H 16 94 L 02/05/18 19:20 97.9 F 85 16 143/62 H 94 L Weight Admit Weight 54.068 kg Weight 55.61 kg I&O: 02/04/18 02/05/18 02/06/18 06:59 06:59 06:59 Intake Total 2697 Output Total 400 Balance 2297 Result Diagrams: 02/06/18 04:19 02/06/18 04:19 <Lenny Harris - Last Filed: 02/06/18 06:52> - Objective Vital Signs & Weight: Vital Signs (12 hours) Temp Pulse Resp BP Pulse Ox 02/06/18 08:38 99.5 F 97 18 02/06/18 07:59 99.5 F 97 18 141/74 H 96 02/06/18 03:43 99.0 F 114 H 16 155/77 H 93 L Weight Admit Weight 54.068 kg Weight 55.61 kg I&O: 02/05/18 02/06/18 02/07/18 06:59 06:59 06:59 Intake Total 2697 480 Output Total 400 Balance 2297 480 Result Diagrams: 02/06/18 04:19 02/06/18 04:19 <Lewis Aleman - Last Filed: 02/06/18 14:03> Phys Exam - Physical Examination Constitutional: NAD HEENT: moist MMs, sclera anicteric Neck: no JVD, supple, full ROM Respiratory: no wheezing, no rales, no rhonchi, clear to auscultation bilateral Cardiovascular: RRR, no significant murmur Gastrointestinal: soft, non-tender, no distention, positive bowel sounds Musculoskeletal: no edema, pulses present Neurological: non-focal, normal sensation, moves all 4 limbs Psychiatric: normal affect, A&O x 3 Skin: normal turgor, cap refill <2 seconds <Lenny Harris - Last Filed: 02/06/18 06:52> Dx/Plan (1) Sepsis Code(s): A41.9 - SEPSIS, UNSPECIFIED ORGANISM Status: Resolved (2) Community acquired pneumonia Code(s): J18.9 - PNEUMONIA, UNSPECIFIED ORGANISM Status: Acute QualifierTitle: Laterality: right (3) History of CVA with residual deficit Code(s): I69.30 - UNSPECIFIED SEQUELAE OF CEREBRAL INFARCTION Status: Acute (4) History of Crohn's disease Code(s): Z87.19 - PERSONAL HISTORY OF OTHER DISEASES OF THE DIGESTIVE SYSTEM Status: Acute - Plan Plan: 1. sepsis 2/2 CAP-no hx of recent hospitalization, coming from home - Azithro and Rocephin. Urine Strep/Legionella were negative. - Received 2 boluses in ER. NS@150 ml/hr. Will continue to monitor HR - Lactic Acidosis resolved: 4.3 to 2.5 to 0.6 - WBC downtrending today - Cxray shows concern for R. side infectious process - Clinically, is improving, continue current management 2. Metabolic Encephalopathy-likely from #1 - MRI of brain negative for acute processes - Neurology consulted, appreciate recs - Neurology wants patient to f/u OP for EMG nerve conduction study - ON ASA and statin- continue 3. Chrons-not in exac, will continue home meds 4. Hypothyroidism-continue home synthroid 5. Depression-continue home meds 6. CAD-continue statin, asa 7. Hld-continue statin 8. Htn- hold for now given above <Lenny Harris - Last Filed: 02/06/18 06:52> Attending Addendum - Attending Addendum Date/Time: 02/06/18 0514 I personally evaluated the patient and discussed the management with Dr. Harris. I agree with the History, Examination, Assessment and Plan documented above with any addition or exceptions noted below. She feels well and is asymptomatic x for very slight non-productive cough. Lactic acidosis is resolved to 0.6. A: Community acquired pneumonia, likely due to streptococcus pneumonia. Toxic/Metabolic encephalopathy now resolved likely due to sepsis from CAP, above. R-LE weakness of unknown etiology. P: D/C home to complete course of Azithromycin & Cefdinir. Follow up with PCP, Dr. Ramires, and with Dr. Reyes for neurology further evaluation with EMG/NCV. MD Benny <Lewis Aleman - Last Filed: 02/06/18 14:03>
[2018-02-06 06:16] LABS: Band 4 % (5-11); Eosinophils 2 % (0-10); Lymphocytes 1 % (21-51); MDiff Complete? YES; Mean Corpuscular HGB CONC 32.9 g/dL (32.0-36.0); Mean Platelet Volume 8.7 fL (7.4-10.4); Monocytes 5 % (0-10); Neutrophil 88 % (42-75); Platelet Count 194 thou/uL (130-400); Red Blood Cell (RBC) Count 2.87 mill/uL (4.20-5.40); White Blood Cell (WBC) Count 16.2 thou/uL (4.8-10.8)
[2018-02-06] MEDS: Levothyroxine Sodium 50 MCG TAB PO SCH (06:31)
[2018-02-06 08:00] VITALS: BP 141/74; TEMP 99.5
[2018-02-06] MEDS: Aspirin 81 mg Enteric Coated Tablet PO SCH (09:10)
[2018-02-06] MEDS: azaTHIOprine 50 MG TAB PO SCH (09:10)
[2018-02-06] MEDS: Azithromycin 250 MG TAB PO SCH (09:10)
[2018-02-06] MEDS: Dicyclomine 20 MG TAB PO SCH (09:10)
[2018-02-06] MEDS: Calcium Carbonate 500 MG TAB PO SCH (09:10)
[2018-02-06] MEDS: Multivit, Therapeutic 1 TAB PO SCH (09:11)
--- NOTE | 2018-02-06 12:26 | DIS-2 ---
DATE OF ADMISSION: 02/04/2018 DATE OF DISCHARGE: 02/06/2018 RESIDENT: Lenny Harris M.D. ADMITTING ATTENDING: Maria Luisa Jensen M.D. DISCHARGE ATTENDING: Lewis Aleman M.D. CONSULTATIONS: 1. Neurology, Dr. Reyes, on 02/04/2018. 2. Stroke Team, on 02/04/2018. PRIMARY DIAGNOSIS: Sepsis secondary to community-acquired pneumonia. SECONDARY DIAGNOSES: 1. Metabolic encephalopathy, likely secondary to sepsis from community-acquired pneumonia. 2. Crohn disease. 3. History of cerebrovascular accident. 4. Hypothyroidism. 5. Coronary artery disease. 6. Hyperlipidemia. 7. Hypertension. 8. History of tobacco abuse. DISCHARGE MEDICATIONS: Resume home meds includin. Ramipril 5 mg p.o. at bedtime. 2. Levothyroxine 50 mcg p.o. daily. 3. Aspirin 81 mg p.o. daily. 4. Rosuvastatin 20 mg p.o. at bedtime. 5. Metoprolol tartrate 12.5 mg p.o. b.i.d. 6. Multivitamin 1 each day. 7. Calcium carbonate 1500 mg p.o. daily. 8. Mirtazapine 15 mg p.o. at bedtime. 9. Hyoscyamine sulfate 0.125 mg p.o. q.4 hours p.r.n. 10. Lomotil 2 tabs p.o. q.i.d. p.r.n. 11. Bentyl 20 mg p.o. q.i.d. 12. Zoloft 100 mg p.o. daily. 13. Estradiol 1 mg p.o. daily. 14. Loperamide HCL 2 mg p.o. p.r.n. 15. Ipratropium 2 sprays INH t.i.d. 16. Azathioprine 50 mg p.o. daily. 17. Tramadol 50 mg p.o. b.i.d. p.r.n. 18. Omeprazole 40 mg p.o. daily. 19. Gabapentin 300 mg p.o. daily. New home medications: 1. Azithromycin 250 mg p.o. daily for 3 days. 2. Cefdinir 300 mg p.o. q.12 hours. HISTORY OF PRESENT ILLNESS AND HOSPITAL COURSE: Ms. Stefanie Madden is a 72-year-old female with pas t medical history of CVA with right-sided deficits, hypertension, hyperlipidemia, and history of CEA and the left carotid, who presented with a history of severe chills, slurred speech, dizziness and we akness. The patient states that when she woke up, the family was having difficulty understanding her and sister reports that she looked more tired than yesterday and her speech was more slurred than no rmal. The patient endorsed cough for the last month with productive clear sputum and states that for the last few days she has had increased shortness of breath with exertion. Family says that she bui s get slurred speech when she gets tired, but the speech change today was much worse than normal. CT of the head at the time of admission showed old stroke findings, but no acute findings and no acute blockages in the neck. CTA of the head and neck showed no high-grade focal stenosis or thrombotic oc clusion of the major arterial system. It did show incidental multifocal patchy consolidation of the right upper lung favoring infection. Chest x-ray was done that showed right-sided pneumonia. During her admission, she also had a brain MRI that showed old left parietal area of stroke with encephalom alacia and gliotic changes. No acute intracranial pathology seen. During the patient's admission wi thin the first 24 hours, the patient's symptoms improved dramatically. On 02/05/2018, the patient st ates that she was feeling much better and not having the fevers, chills, and weakness that she was ex periencing before. Her speech also cleared up and she was no longer slurring her speech at that time . Neurology was consulted; saw the patient and Dr. Reyes had a higher suspicion for worsening right-s ided weakness and aphasia, likely being secondary to the metabolic encephalopathy from the right lowe r lobe pneumonia. He also recommended her following up outpatient in the Neurology Clinic for EMG ne rve conduction study of the right lower extremity for further evaluation. He cleared her from a neur ological standpoint at that time. The patient was cleared from a medical standpoint on 02/06/2018. She was no longer requiring supplemental O2 and she was feeling much better and ready to complete the rest of her treatment outpatient. The patient was in agreement with the plan. DISPOSITION: Stable. DISCHARGE INSTRUCTIONS: 1. Location: Home. 2. Diet: Heart healthy. 3. Activity: As tolerated. 4. Followup: Follow up with Dr. Reyes for EMG nerve conduction study and follow up with primary care provider for a routine hospital admission followup. The patient is expecting to have complete recovery if she continues a course of antibiotics.
[2018-02-06] MEDS ORDERED: traZODone HCl 150 MG TAB PO SCH (21:00)
[2018-02-07 18:10] LABS: Folate,Hemolysate 372.8 ng/mL (Not Estab.); Hematocrit 30.4 % (34.0-46.6); RBC Folate Test Component 1226 ng/mL (>498)
== END 2018-02-06 12:15 | disposition home or self-care (01) | DRG 871 ==
LOC: ERS 13:01 → 2NO 15:53 → 2SE 18:47
PROVIDERS: ADMIT Family Medicine; ATTEND Family Medicine
DX: A41.9 Sepsis, unspecified organism (principal); J18.9 Pneumonia, unspecified organism; G93.41 Metabolic encephalopathy; I69.351 Hemiplegia and hemiparesis following cerebral infarction affecting right dominant side; E87.2 Acidosis; K50.90 Crohn's disease, unspecified, without complications; R47.01 Aphasia; E03.9 Hypothyroidism, unspecified; I10 Essential (primary) hypertension; I25.10 Atherosclerotic heart disease of native coronary artery without angina pectoris; E78.5 Hyperlipidemia, unspecified; F32.9 Major depressive disorder, single episode, unspecified; Z90.49 Acquired absence of other specified parts of digestive tract; F17.210 Nicotine dependence, cigarettes, uncomplicated; Z88.5 Allergy status to narcotic agent; Z88.8 Allergy status to other drugs, medicaments and biological substances; R26.9 Unspecified abnormalities of gait and mobility; Z91.81 History of falling; Z90.710 Acquired absence of both cervix and uterus; Z87.891 Personal history of nicotine dependence
CPT/HCPCS: 36415; 36416; 70450; 70496; 70498; 70551; 71045; 80053; 80061; 82550; 82553; 82607; 82747; 83036; 83605; 84443; 84484; 85025; 85610; 85730; 87040; 87899; 93005; 96361; 96365; 96375; A4216; G8978-GP-CM; G8979-GP-CJ; G8987-GO-CI; G8988-GO-CI; G8989-GO-CI; J0456; J0696; J2405; J7500; Q0162

== ENCOUNTER 2018-04-29 09:13 | Outpatient (CLI) | payer MEDICARE, OTHER ==
[2018-04-29 10:41] LABS: Hemoglobin 11.1 g/dL (12.0-16.0); Mean Corpuscular Hemoglobin 35.1 pg (27.0-31.0); Platelet Count 225 thou/uL (130-400); RBC Distribution Width 14.2 % (11.5-14.5); Red Blood Cell (RBC) Count 3.16 mill/uL (4.20-5.40); White Blood Cell (WBC) Count 7.2 thou/uL (4.8-10.8)
[2018-04-29 11:05] LABS: Anion Gap 10 mmol/L (10-20); BUN (Urea Nitrogen) 12 mg/dL (9.8-20.1); Calc. Creatinine Clearance 0 mL/min (70-130); Calcium 9.5 mg/dL (7.8-10.44); Carbon Dioxide 27 mmol/L (23-31); Chloride 107 mmol/L (98-107); Estimated GFR-MDRD 58; Glucose 104 mg/dL (83-110); Potassium 4.7 mmol/L (3.5-5.1); Sodium 139 mmol/L (136-145)
--- NOTE | 2018-04-29 17:14 | EKG ---
Test Reason : Blood Pressure : / mmHG Vent. Rate : 050 BPM Atrial Rate : 050 BPM P-R Int : 208 ms QRS Dur : 088 ms QT Int : 444 ms P-R-T Axes : 082 076 079 degrees QTc Int : 404 ms Sinus bradycardia Septal infarct (cited on or before 29-APR-2018) Abnormal ECG When compared with ECG of 04-FEB-2018 13:30, Vent. rate has decreased BY [address] Melany COX (3) on 04/29/2018 5:13:55 PM Referred By: HARISH Confirmed By:DR. Melany COX
== END 2018-04-29 09:14 | disposition home or self-care (01) ==
LOC: LABBT 09:13
PROVIDERS: ATTEND Neurological Surgery
DX: Z01.818 Encounter for other preprocedural examination (principal); M54.16 Radiculopathy, lumbar region
CPT/HCPCS: 80048; 85027; 93005; 93010

== ENCOUNTER 2018-05-06 07:39 | Day surgery (SDC) | payer MEDICARE, OTHER ==
[2018-04-29 09:38] VITALS: BMI 19.1
--- NOTE | 2018-05-05 23:25 | HP ---
HISTORY OF PRESENT ILLNESS: Ms. Madden is a very pleasant 72-year-old woman who is known to us for previous evaluations of surgeries for both cervical and lumbar complaints. She returns now with adele re right-sided L4 symptoms and has an MRI from [place] that reveals foraminal stenosis of signific ant degree, with a very small interpedicular distance between L4-L5 on that side. She has had nerve conduction study as well as CT scan that helped confirm this is the likely location of her symptoms. She notes move forward with surgery at this time. PAST MEDICAL HISTORY: Anemia, hypertension. PAST SURGICAL HISTORY: Cholecystectomy, hysterectomy, gastric surgery, tonsillectomy, lumbar decompr ession. ALLERGIES: PENICILLIN, CODEINE, FLAGYL, REGLAN and LYRICA. CURRENT MEDICATIONS: Altace, aspirin, azathioprine, Crestor, dicyclomine, estradiol, ipratropium bro mide, levothyroxine, Lomotil, metoprolol, mirtazapine, Prilosec, tramadol and Zoloft. PHYSICAL EXAMINATION: NEUROLOGIC: Patient is alert and oriented x3. Gait is somewhat antalgic. Lower extremity motor exa m is normal. ASSESSMENT: Lumbar radiculopathy. PLAN: Dr. Nguyễn met with the patient, reviewed imaging and advocated for a right L4-L5 facetectomy w ith unilateral instrumentation and fusion. He explained to the patient the risks, benefits, and alte rnatives to the procedure. The patient expressed understanding and would like to move forward with s urgery as discussed. I do believe the patient is mentally competent and capable of making medical de cisions for herself and we will move forward with surgery as planned.
[2018-05-06] MEDS ORDERED: Bupivacaine HCl 0.5%/Epinephrine 1:200,000/PF 30 ml Vial ONE (09:37)
[2018-05-06] MEDS ORDERED: Fentanyl 100 MCG/2 ML VIAL ONE (09:37)
[2018-05-06] MEDS ORDERED: Thrombin 5000 UNITS/5 ML VIAL ONE (09:37)
[2018-05-06] MEDS ORDERED: Clindamycin/D5W 900 mg/50 ml Premix Bag ONE (09:44)
[2018-05-06] MEDS ORDERED: Levofloxacin 500 mg/D5W 100 ml Premix Bag ONE (09:44)
--- NOTE | 2018-05-06 11:39 | OP ---
DATE OF PROCEDURE: 05/06/2018 SURGEON: Joey Nguyễn M.D. HAND RUG CLEANER: Rachid Shearer PA-C INDICATION: Pain. DIAGNOSIS: Lumbar radiculopathy. PROCEDURE: Right L4-5 facetectomy, posterolateral instrument infusion, placement of allograft, place ment of autograft. ANESTHESIA: General. TECHNIQUE: The patient was brought into the operating room and placed under general anesthesia. She was flipped from a supine to a prone position on the operating room table. A linear incision was pl anned over L4-5 on the right. After prepping and draping and after an appropriate operative pause, t he incision was created. The soft tissues were swept right of midline. A self-retaining retractor w as placed. The facet joint at L4-5 was removed in order to decompress the exiting L4 nerve root. Th e L4 and L5 pedicles were exposed. Pedicle screws were placed with the aid of C-arm fluoroscopy. A shyam was placed across the screw heads and final tightened under distraction to further decompress the exiting L4 nerve root. Allograft and autograft material was then placed in the lateral confines of the instrumentation construct. The wound was irrigated. Hemostasis was maintained throughout. The wound was then closed in anatomic layers and a pressure dressing was applied. There were no known pr ocedural complications.
[2018-05-06] MEDS ORDERED: PROPOFOL 200 MG/20 ML VIAL ONE (13:41)
[2018-05-06] MEDS ORDERED: Lidocaine 1% PF 5 ML VIAL ONE (13:41)
[2018-05-06] MEDS ORDERED: PHENYLEPHRINE-NS 100 MCG/ML 10 ML SYRINGE ONE (13:41)
[2018-05-06] MEDS ORDERED: Ondansetron HCl/PF 4 MG/2 ML Vial ONE (13:41)
[2018-05-06] MEDS ORDERED: Glycopyrrolate 0.2 MG/ML 5 ML SYRINGE ONE (13:41)
[2018-05-06] MEDS ORDERED: Ketorolac Tromethamine 30 MG/ML VIAL ONE (13:41)
[2018-05-06] MEDS ORDERED: HYDROcodone/Acetaminophen 5/325 mg Tablet ONE (14:29)
== END 2018-05-06 15:16 | disposition home or self-care (01) ==
LOC: SDC 07:39
PROVIDERS: ATTEND Neurological Surgery
PROC: 0SG007J Fusion of Lumbar Vertebral Joint with Autologous Tissue Substitute, Posterior Approach, Anterior Column, Open Approach (ICD-10-PCS; principal; 2018-05-06)
DX: M54.16 Radiculopathy, lumbar region (principal); I10 Essential (primary) hypertension; D64.9 Anemia, unspecified; Z88.5 Allergy status to narcotic agent; Z88.0 Allergy status to penicillin; Z79.82 Long term (current) use of aspirin; Z79.899 Other long term (current) drug therapy
CPT/HCPCS: 20930; 20936; 22612; 22840; 76001; C1713 ×2; J0670; J1956; J3010; J3490

== ENCOUNTER 2018-06-16 13:54 | Outpatient (CLI) | payer MEDICARE, OTHER ==
--- NOTE | 2018-06-16 15:55 | RAD ---
TWO VIEWS LUMBAR SPINE: 06/16/18 INDICATION: Lumbar radiculopathy. COMPARISON: None. FINDINGS: There is dextroscoliosis of the lumbar spine. there is right pedicle screws at L4 and L5 with an inte rconnecting cable. There is slight anterior translation of L3 on L4 which is likely degenerative. The re is slight retrolisthesis of L2 on L3. There is severe multilevel disc degenerative facet osteoarth ritic change. Surgical clips seen right of midline at the L4 vertebral level. There is some surgical clips within the upper abdomen near the midline. Suture clips seen left of midline at L2-3. IMPRESSION: 1. Moderate to severe multilevel spondylosis cervical spine. 2. Postoperative changes consistent with L4-5 interbody fusion. POS: [facility]
== END 2018-06-16 13:55 | disposition home or self-care (01) ==
LOC: TBSIIMAG 13:54
PROVIDERS: ATTEND Neurological Surgery
DX: M54.16 Radiculopathy, lumbar region (principal); M47.892 Other spondylosis, cervical region; Z98.1 Arthrodesis status
CPT/HCPCS: 72100

== ENCOUNTER 2018-10-05 13:40 | Outpatient (CLI) | payer MEDICARE, OTHER ==
--- NOTE | 2018-10-05 16:15 | MRI ---
MRI RIGHT HIP WITHOUT CONTRAST: 10/05/18 HISTORY: Trochanteric bursitis. Fall. M70.61. COMPARISON: None. FINDINGS: BONES: There is no acute fracture. No malalignment. No stress edema. Moderate hypertrophic degenerative simmons ge of the pubic symphysis. TENDONS: There is high grade partial tear of both the right gluteus medius and minimus tendon at the greater t rochanteric insertion. There are erosive changes of the lateral cortex of the right greater trochante r. There is a large volume right sided greater trochanteric bursitis. INTRAPELVIC SOFT TISSUES: Unremarkable. IMPRESSION: High grade gluteus minimus and partial grade gluteus medius right sided tendon tears with greater tro chanteric bursitis. Patient may benefit ultrasound guided steroid injection. There is associated mild 40-50% atrophy of the right gluteus minimus muscle. POS: [facility]
== END 2018-10-05 13:41 | disposition home or self-care (01) ==
LOC: BICMRI 13:40
PROVIDERS: ATTEND Orthopaedic Surgery
DX: M70.61 Trochanteric bursitis, right hip (principal); S76.011A Strain of muscle, fascia and tendon of right hip, initial encounter; M62.58 Muscle wasting and atrophy, not elsewhere classified, other site

== ENCOUNTER 2018-12-22 13:49 | Outpatient (CLI) | payer MEDICARE, OTHER ==
--- NOTE | 2018-12-22 16:20 | CT ---
CT PULMONARY LUNG SCAN: History: 40-plus year smoker. History of stomach cancer. FINDINGS: The lungs are clear of any infiltrative process. No bronchiectatic change or honeycombing noted. With in the right upper lobe is a slightly more linear oriented opacity seen on sagittal image 62, axial i mage 18 measuring 4 x 6 mm in size. Also within the right upper lobe in the more anterior segment see n on axial 26 and coronal 43 is some nodular opacities, almost more of a tree and bud appearance. The re is a pleural based nodular density which is located in the posterior segment of the right upper lo be. It abuts the major fissure and may represent an intrafissural node. It is seen axial image 26, sa gittal image 51. It measures in the 5-6 mm range. Another nodular density is seen on axial image 22, it measures 4 mm in size. It is seen on sagittal image 62 and coronal image 77 and it measures larges t on the sagittal images were it is in the 5-6 mm range. No significant mediastinal adenopathy appreciated. The visualized liver parenchyma shows no focal fin dings. Gallbladder has been removed. IMPRESSION: Lung RADS category 2 - benign appearance, low likelihood of becoming clinically active cancer. Annual follow up CT is recommended. POS: TPC
== END 2018-12-22 13:50 | disposition home or self-care (01) ==
LOC: CT 13:49
PROVIDERS: ATTEND Family Medicine
DX: F17.211 Nicotine dependence, cigarettes, in remission (principal)
CPT/HCPCS: G0297

== ENCOUNTER 2019-04-24 16:23 | Outpatient (CLI) | payer MEDICARE, OTHER ==
--- NOTE | 2019-04-24 17:56 | RAD ---
TWO VIEW CHEST SERIES: INDICATIONS: Abnormal weight loss. COMPARISON: Exam from 02/04/2018. FINDINGS: There is hyperinflation of the lungs. Mild interstitial prominence and slight reticulonodular nodula rity is seen at the upper to mid lung zones, more so on the right. The cardiomediastinal silhouette is of normal size. There is vascular calcification. IMPRESSION: Mild reticulonodularity of the upper to mid lung zones, more so on the right. This could relate to a n atypical infection. Given nodularity, recommend follow-up two view chest upon completion of treatm ent regimen and resolution of acute symptoms, to confirm resolution. POS: URSZULA
== END 2019-04-24 16:24 | disposition home or self-care (01) ==
LOC: BICRAD 16:23
PROVIDERS: ATTEND Internal Medicine
DX: J18.9 Pneumonia, unspecified organism (principal); R63.4 Abnormal weight loss
CPT/HCPCS: 71046

== ENCOUNTER 2019-06-12 15:07 | Outpatient (CLI) | payer MEDICARE, OTHER ==
--- NOTE | 2019-06-12 15:24 | RAD ---
EXAM: Chest PA and lateral: HISTORY: Cough. Follow-up chest radiograph COMPARISON: 04/24/2019 FINDINGS: Heart: Normal cardiac silhouette Aorta: Stable elongation of the thoracic aorta Pulmonary vessels: Normal Costophrenic angles: Costophrenic angles are clear. Lungs: Hyperinflation. Chronic changes. No mass. No consolidation. Pneumothorax: No pneumothorax Osseous structures: No osseous abnormalities IMPRESSION: 1. No acute cardiopulmonary process. 2. Stable elongation of the aorta 3. Hyperinflation. Chronic changes
== END 2019-06-12 15:08 | disposition home or self-care (01) ==
LOC: BICRAD 15:07
PROVIDERS: ATTEND Internal Medicine
DX: R05 Cough (principal); I77.89 Other specified disorders of arteries and arterioles; J98.4 Other disorders of lung
CPT/HCPCS: 71046

== ENCOUNTER 2019-07-19 14:56 | Outpatient (CLI) | payer MEDICARE, OTHER ==
[2019-07-19 16:09] LABS: Hemoglobin 11.6 g/dL (12.0-16.0); Mean Platelet Volume 7.9 fL (7.4-10.4); Platelet Count 212 thou/uL (130-400); RBC Distribution Width 13.9 % (11.5-14.5); Red Blood Cell (RBC) Count 3.33 mill/uL (4.20-5.40); White Blood Cell (WBC) Count 5.9 thou/uL (4.8-10.8)
[2019-07-19 16:28] LABS: Anion Gap 12 mmol/L (10-20); BUN (Urea Nitrogen) 8 mg/dL (9.8-20.1); Calc. Creatinine Clearance 0 mL/min (70-130); Calcium 9.7 mg/dL (7.8-10.44); Carbon Dioxide 28 mmol/L (23-31); Chloride 101 mmol/L (98-107); Estimated GFR-MDRD 66; Glucose 120 mg/dL (83-110); Potassium 3.7 mmol/L (3.5-5.1); Sodium 137 mmol/L (136-145)
== END 2019-07-19 14:57 | disposition home or self-care (01) ==
LOC: LABBT 14:56
PROVIDERS: ATTEND Thoracic Surgery (Cardiothoracic Vascular Surgery)
DX: Z01.812 Encounter for preprocedural laboratory examination (principal); I73.9 Peripheral vascular disease, unspecified; K55.1 Chronic vascular disorders of intestine
CPT/HCPCS: 80048; 85027

== ENCOUNTER 2019-07-21 05:54 | Day surgery (SDC) | payer MEDICARE, OTHER ==
[2019-07-19 15:24] VITALS: BMI 15.6
[2019-07-21] MEDS ORDERED: Lidocaine 1% (PF) 30 ML VIAL ONE (06:37)
[2019-07-21] MEDS ORDERED: Midazolam HCl 2 mg/2 ml Vial ONE ×2 (07:05→09:20)
[2019-07-21] MEDS ORDERED: Heparin 10,000 UNITS/1 ML VIAL ONE (08:00)
[2019-07-21] MEDS ORDERED: Iopamidol 370 76% 50 ML VIAL FS ONE (09:03)
[2019-07-21] MEDS ORDERED: Lidocaine 1% w/Epinephrine 1:100K 20 ML VIAL ONE (09:18)
[2019-07-21] MEDS ORDERED: Clopidogrel Bisulfate 75 MG TAB ONE (14:35)
--- NOTE | 2019-07-24 13:57 | OP ---
DATE OF PROCEDURE: 07/21/2019 PREOPERATIVE DIAGNOSIS: Celiac artery stenosis with weight loss. PROCEDURE PERFORMED: Abdominal aortography with selective cannulation of the celiac artery and superior mesenteric artery separately. This was done through a right femoral approach and then a right brachial artery cutdown and repair with stenting of the celiac artery. ANESTHESIA: 1% lidocaine. FLUOROSCOPY: 45.2 minutes. CONTRAST: 60 mL. DESCRIPTION OF PROCEDURE: After prepping and draping the right groin, ultrasound-guided puncture of the right common femoral artery was carried out after lidocaine administration. A 5-Norwegian dilator and sheath were placed following which the PA and lateral angiography was obtained and the celiac artery and superior mesenteric artery were each cannulated. There was no stenosis in the superior mesenteric artery; however, with the 5-Norwegian Ross catheter in the superior mesenteric artery, there was no reflux of contrast. At this time, several wires were used to enter the celiac artery including angled Glidewire, Bentson guidewire, and attempts with stiffer wires as well as 0.014 Luge wire, but no catheter would track over this. At that time, it was felt that the angle off the aorta was too steep in the celiac artery and the approach would need to be carried out from above. Following this, the right arm was then prepped and draped and lidocaine used to infiltrate above the antecubital crease. Cutdown of the brachial artery was then performed and a needle puncture and placement of a 90 cm 5-Norwegian destination sheath was accomplished. Using a Bentson wire as well as a Glidewire and various catheters to negotiate the aortic arch, the 6-Norwegian Destination sheath was eventually passed down to the level of the celiac artery. Following this, a 0.014 wire was advanced and balloon angioplasty with a 4 x 2 balloon was performed. The wire then came out of the vessel due to built-up tension in the sheath and it moved. The wire was then replaced. Following which, a 5 x 15 Express stent was deployed with good angiographic result. Following this, the brachial artery was repaired with a running 6-0 Prolene suture. The wound was then closed in layers. The patient's catheter in the groin was then removed and pressure held, and she was taken to the recovery room area. Job ID: [id number]
== END 2019-07-21 16:32 | disposition home or self-care (01) ==
LOC: SDC 05:54
PROVIDERS: ATTEND Thoracic Surgery (Cardiothoracic Vascular Surgery)
PROC: 04713DZ Dilation of Celiac Artery with Intraluminal Device, Percutaneous Approach (ICD-10-PCS; principal; 2019-07-21)
PROC: B4101ZZ Fluoroscopy of Abdominal Aorta using Low Osmolar Contrast (ICD-10-PCS; 2019-07-21)
DX: I77.4 Celiac artery compression syndrome (principal); K55.1 Chronic vascular disorders of intestine; I10 Essential (primary) hypertension; K50.90 Crohn's disease, unspecified, without complications; J44.9 Chronic obstructive pulmonary disease, unspecified; I69.351 Hemiplegia and hemiparesis following cerebral infarction affecting right dominant side; I65.29 Occlusion and stenosis of unspecified carotid artery; I71.4 Abdominal aortic aneurysm, without rupture; R63.4 Abnormal weight loss; Z68.1 Body mass index [BMI] 19.9 or less, adult; Z87.891 Personal history of nicotine dependence; Z79.82 Long term (current) use of aspirin; Z79.899 Other long term (current) drug therapy; Z88.0 Allergy status to penicillin; Z88.1 Allergy status to other antibiotic agents; Z88.5 Allergy status to narcotic agent; Z88.8 Allergy status to other drugs, medicaments and biological substances; Z91.048 Other nonmedicinal substance allergy status
CPT/HCPCS: 36200; 36245; 37237; 75625; 75726; 76942; 85347 ×2; C1769 ×2; C1876; C1887; 99152; 99153; J1644; J2001; J2250; Q9967

== ENCOUNTER 2019-08-18 14:24 | Outpatient (CLI) | payer MEDICARE, OTHER ==
--- NOTE | 2019-08-18 16:26 | MRI ---
MRI OF THE LUMBAR SPINE WITH AND WITHOUT IV CONTRAST: 08/18/19 INDICATION: 74-year-old female with lumbar radiculopathy; right sided low back pain that radiates into the right leg for several months. History of lumbar surgery two years ago without recent trauma. CONTRAST: 8 mL Multihance. COMPARISON: MR lumbar spine with and without contrast dated 12/21/17. FINDINGS: Since the comparison examination there has been interval placement of right unilateral pedicle screws at L4 and L5. Bone marrow signal intensity appears within normal limits. Mild Modic end plate degenerative change s een at L5. No acute fracture is demonstrated. Conus is seen to terminate at approximately L1. The visualized aspects of the retroperitoneum demonstrates small bilateral renal cysts. At L5-S1, there is a broad based bulge with a superimposed central protrusion that is stable to the p rior exam. The disc bulge in addition to facet hypertrophy and loss of disc space height induces mode rate left and mild right neural foraminal narrowing. This is stable to the prior exam. At L4-5, there is a disc osteophyte complex with facet hypertrophy but no appreciable central canal n arrowing. There is suggestion of mild right neural foraminal narrowing which is stable. At L3-4, there is a broad based disc bulge with facet hypertrophy inducting mild central canal narrow ing with mild bilateral neural foraminal narrowing which is stable to the prior exam. At L2-3, there is a disc osteophyte complex and facet joint degenerative change inducing mild left ne ural foraminal narrowing which is stable to the prior exam. At L1-2, there is no appreciable central canal or neural foraminal narrowing. At T12-L1, there is no appreciable central canal or neural foraminal narrowing. Postcontrast images demonstrate no definite abnormal region of enhancement. IMPRESSION: 1. Interval postsurgical change of a right unilateral interbody fusion at L4-5. 2. Stable multilevel spondylosis of the lumbar spine with multilevel neural foraminal narrowing. POS: OFF
== END 2019-08-18 14:25 | disposition home or self-care (01) ==
LOC: BICMRI 14:24
PROVIDERS: ATTEND Neurological Surgery
DX: M47.26 Other spondylosis with radiculopathy, lumbar region (principal); M54.5 Low back pain; Z98.1 Arthrodesis status
CPT/HCPCS: 72158

== ENCOUNTER 2020-01-11 07:47 | Outpatient (CLI) | payer MEDICARE, OTHER ==
--- NOTE | 2020-01-11 09:39 | MRI ---
Exam: Right lower extremity MRI without IV contrast: HISTORY: Pain right hip following an injury from a fall several weeks ago COMPARISON: 10/05/2018 FINDINGS: There is acute abnormal marrow signal involving the lateral aspect of the base of the greater trochan ter of the right femur evidence for a nondisplaced fracture with minimal adjacent edema. There is again noted to be mid to high-grade tears of the gluteus minimus and gluteus medius tendon insertions as well as extensive fluid within the trochanteric bursa evidence for extensive trochanteric bursitis. There also appears to be some abnormal high signal within the superior vastus lateralis mus briseyda evidence for contusion or muscle strain. There are some fatty changes in the gluteus minimus muscle, stable. There is evidence for bilateral hip arthrosis. Somewhat indistinct and blunted hip la wanda evidence for degenerative fraying. IMPRESSION: Evidence for acute nondisplaced subcortical fracture involving the lateral aspect of the base of the greater trochanter of the right femur. Overall stable appearing fairly extensive partial thickness tearing of the gluteus minimus and gluteu s medius minimus tendon insertion regions with extensive fluid in the trochanteric bursa evidence for bursitis. Minimal increased abnormal signal in the upper vastus medialis muscle evidence for strain or contusio n.
== END 2020-01-11 07:48 | disposition home or self-care (01) ==
LOC: BICMRI 07:47
PROVIDERS: ATTEND Orthopaedic Surgery
DX: M25.551 Pain in right hip (principal); S72.114A Nondisplaced fracture of greater trochanter of right femur, initial encounter for closed fracture; S76.011A Strain of muscle, fascia and tendon of right hip, initial encounter; M71.9 Bursopathy, unspecified

== ENCOUNTER 2020-02-21 09:42 | Outpatient (CLI) | payer MEDICARE, OTHER ==
--- NOTE | 2020-02-28 11:13 | RAD ---
EXAM: XR Ba Swallow W/Speech Therap PROVIDED CLINICAL HISTORY: Dysphagia, oral pharyngeal phase. Feeding difficulties. Progressive dysphagia with coughing and gaggi ng with food intake. Gastroesophageal reflux disease without esophagitis. COMPARISON: None FINDINGS: This examination was performed by speech pathology, and a video is available for evaluation. Varying consistencies of barium were administered during the exam. There is normal formation of bolus into the posterior pharynx. A few episodes of premature spill of contrast into the vallecula were noted pr ior to initiation of swallowing mechanism. Episodes of mild penetration were seen with swallowing of thin liquid barium. No aspiration is noted during the exam. Small linear filling defect is seen in the anterior aspect of the esophagus at the C5-6 level which may represent small web within the esophagus. A 12.5 mm barium tablet was administered during the exam which does traverse this region f reely and without holdup. Postoperative changes of the cervical spine are seen with anterior plate and screws transfixing the C 4-C5 and C5-6 levels with evidence of intradiscal prostheses. Mild degenerative changes are seen at the C6-7 level. A 12.5 mm barium tablet was administered during the exam Fluoroscopy: Time-21.9 seconds Dose-12.12 mGy IMPRESSION: 1. 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 A 12.5 mm barium tablet was administered during this exam which traverses this region freely and without holdup. 2. Mild penetration without evidence of aspiration. Indications
== END 2020-02-21 09:43 | disposition home or self-care (01) ==
PROVIDERS: ATTEND Internal Medicine
DX: I69.191 Dysphagia following nontraumatic intracerebral hemorrhage (principal); R13.12 Dysphagia, oropharyngeal phase; R63.3 Feeding difficulties; K21.9 Gastro-esophageal reflux disease without esophagitis; R05 Cough; R13.19 Other dysphagia; N81.6 Rectocele; K50.00 Crohn's disease of small intestine without complications
CPT/HCPCS: 36415; 74230; 80053; 85025; 85652; 86140

== ENCOUNTER 2021-05-01 15:51 | Observation (INO) | payer MEDICARE, OTHER ==
[2021-05-01] MEDS ORDERED: Adenosine 6 MG/2 ML VIAL ONE (16:16)
[2021-05-01 17:16] LABS: #Basophils 0.1 thou/uL (0.0-0.2); #Eosinphils 0.1 thou/uL (0.0-0.7); #Monocytes 1.4 thou/uL (0.11-0.59); #Neutrophils 7.4 thou/uL (1.40-6.50); %Basophils 0.6 % (0.0-1.0); %Eosinophils 1.1 % (0.0-10.0); %Lymphocytes 10.2 % (21.0-51.0); %Monocytes 13.8 % (0.0-10.0); %Neutrophils 74.2 % (42.0-75.0); Hemoglobin 9.9 g/dL (12.0-16.0); Mean Corpuscular HGB CONC 34.2 g/dL (32.0-36.0); Mean Platelet Volume 7.3 fL (7.4-10.4); Platelet Count 414 thou/uL (130-400); RBC Distribution Width 15.3 % (11.5-14.5); Red Blood Cell (RBC) Count 2.48 mill/uL (4.20-5.40)
[2021-05-01 17:36] LABS: ALT (SGPT) 13 U/L (8-55); AST (SGOT) 28 U/L (5-34); Albumin 3.1 g/dL (3.4-4.8); Alkaline Phosphatase 90 U/L (40-110); Anion Gap 13 mmol/L (10-20); BUN (Urea Nitrogen) 9 mg/dL (9.8-20.1); Bilirubin, Total 0.3 mg/dL (0.2-1.2); Calc. Creatinine Clearance 0 mL/min (70-130); Calcium 8.6 mg/dL (7.8-10.44); Carbon Dioxide 17 mmol/L (23-31); Chloride 109 mmol/L (98-107); Globulin 3.7 g/dL (2.4-3.5); Glucose 127 mg/dL (83-110); Potassium 3.3 mmol/L (3.5-5.1); Protein, Total 6.8 g/dL (5.8-8.1); Sodium 136 mmol/L (136-145)
[2021-05-01] MEDS ORDERED: Enoxaparin Sodium 40 MG/0.4 ML SYRINGE ONE (17:47)
[2021-05-01] MEDS ORDERED: Enoxaparin Sodium 30 MG/0.3 ML SYRINGE ONE (17:56)
[2021-05-01] MEDS ORDERED: Acetaminophen 325 MG TAB PO PRN (20:44)
[2021-05-01] MEDS ORDERED: Ondansetron ODT 4 MG TAB PO PRN (20:44)
[2021-05-01] MEDS ORDERED: Ondansetron PF 4 MG/2 ML Vial IVP PRN (20:44)
[2021-05-01] MEDS ORDERED: Potassium Chloride 20 MEQ TAB PO SCH (21:00)
[2021-05-01 21:27] LABS: Troponin I Less than 0.010 ng/mL (< 0.028)
[2021-05-01 21:29] VITALS: BMI 14.6
[2021-05-01 23:21] LABS: Troponin I Less than 0.010 ng/mL (< 0.028)
[2021-05-01] MEDS ORDERED: Dicyclomine 20 MG TAB PO SCH (23:30)
[2021-05-01] MEDS ORDERED: OLANZapine 5 MG TAB PO SCH (23:30)
[2021-05-01] MEDS ORDERED: Rosuvastatin 20 MG TAB PO SCH (23:30)
[2021-05-01] MEDS ORDERED: traZODone HCl 50 MG TAB PO SCH (23:30)
[2021-05-02] MEDS ORDERED: Magnesium 2 GM/50 ML 2 GM in Premix Bag 1 BAG IVPB SCH (00:30)
[2021-05-02] MEDS ORDERED: Enoxaparin Sodium 80 MG/0.8 ML SYRINGE SC SCH (05:00)
[2021-05-02 05:18] LABS: #Basophils 0.1 thou/uL (0.0-0.2); #Eosinphils 0.2 thou/uL (0.0-0.7); #Monocytes 1.2 thou/uL (0.11-0.59); %Basophils 1.2 % (0.0-1.0); %Eosinophils 2.3 % (0.0-10.0); %Lymphocytes 12.1 % (21.0-51.0); %Monocytes 14.3 % (0.0-10.0); %Neutrophils 70.1 % (42.0-75.0); Hemoglobin 9.6 g/dL (12.0-16.0); Mean Corpuscular HGB CONC 33.5 g/dL (32.0-36.0); Mean Corpuscular Hemoglobin 39.3 pg (27.0-31.0); Mean Platelet Volume 7.3 fL (7.4-10.4); Platelet Count 414 thou/uL (130-400); RBC Distribution Width 14.8 % (11.5-14.5); Red Blood Cell (RBC) Count 2.43 mill/uL (4.20-5.40); White Blood Cell (WBC) Count 8.5 thou/uL (4.8-10.8)
[2021-05-02 05:42] LABS: Anion Gap 10 mmol/L (10-20); BUN (Urea Nitrogen) 7 mg/dL (9.8-20.1); Calc. Creatinine Clearance 42 mL/min (70-130); Calcium 8.8 mg/dL (7.8-10.44); Carbon Dioxide 21 mmol/L (23-31); Chloride 109 mmol/L (98-107); Glucose 97 mg/dL (83-110); Potassium 4.2 mmol/L (3.5-5.1); Sodium 136 mmol/L (136-145)
[2021-05-02] MEDS ORDERED: Enoxaparin Sodium 40 MG/0.4 ML SYRINGE SC SCH (06:00)
[2021-05-02] MEDS ORDERED: Levothyroxine Sodium 50 MCG TAB PO SCH (06:45)
[2021-05-02] MEDS ORDERED: Dicyclomine 20 MG TAB PO SCH (09:00)
[2021-05-02 11:07] VITALS: BP 120/58; TEMP 98.7
[2021-05-02] MEDS ORDERED: traZODone HCl 50 MG TAB PO SCH (21:00)
[2021-05-02] MEDS ORDERED: Rosuvastatin 20 MG TAB PO SCH (21:00)
[2021-05-02] MEDS ORDERED: OLANZapine 5 MG TAB PO SCH (21:00)
[2021-05-02] MEDS ORDERED: Mirtazapine 15 MG TAB PO SCH (21:00)
[2021-05-03] MEDS ORDERED: Levothyroxine Sodium 50 MCG TAB PO SCH (06:00)
== END 2021-05-02 15:25 | disposition home or self-care (01) ==
LOC: ERS 15:51 → ERHOLD 18:25 → 2SW 20:16
PROVIDERS: ADMIT Internal Medicine; ATTEND Internal Medicine
DX: I47.1 Supraventricular tachycardia (principal); E87.6 Hypokalemia; D53.9 Nutritional anemia, unspecified; I10 Essential (primary) hypertension; I25.10 Atherosclerotic heart disease of native coronary artery without angina pectoris; I25.2 Old myocardial infarction; K50.90 Crohn's disease, unspecified, without complications; I35.0 Nonrheumatic aortic (valve) stenosis; J44.9 Chronic obstructive pulmonary disease, unspecified; Z87.891 Personal history of nicotine dependence; Z79.899 Other long term (current) drug therapy; Z88.0 Allergy status to penicillin; Z88.1 Allergy status to other antibiotic agents; Z88.5 Allergy status to narcotic agent; Z88.8 Allergy status to other drugs, medicaments and biological substances; Z91.048 Other nonmedicinal substance allergy status; Z20.822 Contact with and (suspected) exposure to COVID-19
CPT/HCPCS: 71045; 80048; 83735; 83880; 84443; 84484 ×2; 85025; 93005; 94760; 96372; 96374; 96375; 99285; G0378 ×3; U0003; U0005; 36415; 80053; J0153; J1650; J3475

== ENCOUNTER 2021-05-15 07:31 | Outpatient (CLI) | payer MEDICARE, OTHER | END 2021-05-15 07:32 | disposition home or self-care (01) | LOC: PET 07:31 | PROVIDERS: ATTEND Internal Medicine Medical Oncology | DX: R91.1 Solitary pulmonary nodule (principal) | CPT/HCPCS: 78815; A9552 ==

== ENCOUNTER 2021-05-29 13:13 | Outpatient (CLI) | payer MEDICARE, OTHER ==
[2021-05-29 15:21] LABS: Hemoglobin 10.7 g/dL (12.0-15.5); Mean Corpuscular HGB CONC 31.8 g/dL (32.0-36.0); Mean Corpuscular Hemoglobin 34.9 pg (27.0-33.0); Mean Corpuscular Volume 109.8 fl (81.6-98.3); Mean Platelet Volume 9.8 fl (7.4-10.4); Platelet Count 526 10x3/uL (150-450); RBC Distribution Width 15.1 % (11.5-14.5); Red Blood Cell (RBC) Count 3.07 10x6/uL (3.90-5.03); White Blood Cell (WBC) Count 8.3 10x3/uL (3.5-10.5)
[2021-05-29 15:52] LABS: Anion Gap 13 mmol/L (10-20); BUN (Urea Nitrogen) 13 mg/dL (9.8-20.1); Calc. Creatinine Clearance 0 mL/min (70-130); Calcium 10.8 mg/dL (7.8-10.44); Carbon Dioxide 26 mmol/L (23-31); Chloride 104 mmol/L (98-107); Glucose 178 mg/dL (83-110); Sodium 140 mmol/L (136-145)
[2021-05-30 12:08] LABS: SARS-CoV-2 PCR by NAA Not Detected (NotDetected)
== END 2021-05-29 13:14 | disposition home or self-care (01) ==
LOC: LABBT 13:13
PROVIDERS: ATTEND Thoracic Surgery (Cardiothoracic Vascular Surgery)
DX: Z01.812 Encounter for preprocedural laboratory examination (principal); C34.11 Malignant neoplasm of upper lobe, right bronchus or lung; Z20.822 Contact with and (suspected) exposure to COVID-19
CPT/HCPCS: 80048; 85027; 86850; 86900; 86901; U0003; U0005

== ENCOUNTER 2021-11-03 07:48 | Outpatient (CLI) | payer MEDICARE, OTHER ==
[2021-11-03] MEDS ORDERED: Iopamidol-370 76% 500 ML 1 ML ONE (09:28)
== END 2021-11-03 07:49 | disposition home or self-care (01) ==
LOC: BICCT 07:48
PROVIDERS: ATTEND Internal Medicine Medical Oncology
DX: C34.11 Malignant neoplasm of upper lobe, right bronchus or lung (principal); D50.0 Iron deficiency anemia secondary to blood loss (chronic); D46.Z Other myelodysplastic syndromes; Z98.890 Other specified postprocedural states; N20.0 Calculus of kidney; R91.8 Other nonspecific abnormal finding of lung field; K50.90 Crohn's disease, unspecified, without complications; E03.9 Hypothyroidism, unspecified; R42 Dizziness and giddiness; Z79.899 Other long term (current) drug therapy
CPT/HCPCS: 36415; 71260; 80053; 80061; 82565; 82607; 84443; 85025; Q9967

== ENCOUNTER 2022-02-03 10:30 | Outpatient (CLI) | payer MEDICARE, OTHER | END 2022-02-03 10:31 | disposition home or self-care (01) | LOC: PET 10:30 | PROVIDERS: ATTEND Internal Medicine Medical Oncology | DX: C34.11 Malignant neoplasm of upper lobe, right bronchus or lung (principal); R91.1 Solitary pulmonary nodule; C79.51 Secondary malignant neoplasm of bone | CPT/HCPCS: 78815; A9552 ==

== ENCOUNTER 2022-06-02 07:48 | Outpatient (CLI) | payer MEDICARE, OTHER ==
[2022-06-02] MEDS ORDERED: Iopamidol 300 61% 100 ML VIAL FS ONE (09:12)
== END 2022-06-02 07:49 | disposition home or self-care (01) ==
LOC: BICCT 07:48
PROVIDERS: ATTEND Thoracic Surgery (Cardiothoracic Vascular Surgery)
DX: C34.11 Malignant neoplasm of upper lobe, right bronchus or lung (principal); I65.21 Occlusion and stenosis of right carotid artery; Z85.118 Personal history of other malignant neoplasm of bronchus and lung
CPT/HCPCS: 71260

== ENCOUNTER 2022-06-11 11:00 | Outpatient (CLI) | payer MEDICARE, OTHER | END 2022-06-11 11:01 | disposition home or self-care (01) | LOC: PET 11:00 | PROVIDERS: ATTEND Internal Medicine Medical Oncology | DX: C34.11 Malignant neoplasm of upper lobe, right bronchus or lung (principal); D46.Z Other myelodysplastic syndromes | CPT/HCPCS: 78815; A9552 ==

== ENCOUNTER 2022-10-13 11:00 | Outpatient (CLI) | payer MEDICARE, OTHER | END 2022-10-13 11:01 | LOC: PET 11:00 | PROVIDERS: ATTEND Internal Medicine Medical Oncology | DX: C34.11 Malignant neoplasm of upper lobe, right bronchus or lung (principal); D46.Z Other myelodysplastic syndromes; C79.51 Secondary malignant neoplasm of bone; R91.8 Other nonspecific abnormal finding of lung field | CPT/HCPCS: 78815; A9552 ==

== ENCOUNTER 2022-10-22 15:40 | Outpatient (CLI) | payer MEDICARE, OTHER | END 2022-10-22 15:41 | disposition home or self-care (01) | LOC: BICRAD 15:40 | PROVIDERS: ATTEND Internal Medicine Medical Oncology | DX: R93.7 Abnormal findings on diagnostic imaging of other parts of musculoskeletal system (principal); M85.822 Other specified disorders of bone density and structure, left upper arm ==

== ENCOUNTER 2022-11-05 11:22 | Inpatient (IN) | payer MEDICARE, OTHER ==
[2022-11-05 12:43] LABS: #Lymphocytes 0.5 thou/uL (1.20-3.40); #Monocytes 0.5 thou/uL (0.11-0.59); #Neutrophils 10.5 thou/uL (1.40-6.50); %Basophils 0.1 % (0.0-1.0); %Eosinophils 0.2 % (0.0-10.0); %Lymphocytes 4.5 % (21.0-51.0); %Monocytes 4.6 % (0.0-10.0); %Neutrophils 90.5 % (42.0-75.0); Hemoglobin 12.6 g/dL (12.0-16.0); Mean Corpuscular HGB CONC 31.8 g/dL (32.0-36.0); Mean Corpuscular Hemoglobin 35.2 pg (27.0-31.0); Mean Platelet Volume 7.9 fL (7.4-10.4); Platelet Count 355 10x3/uL (130-400); RBC Distribution Width 14.8 % (11.5-14.5); Red Blood Cell (RBC) Count 3.59 mill/uL (4.20-5.40); White Blood Cell (WBC) Count 11.6 10x3/uL (4.8-10.8)
[2022-11-05 12:46] LABS: ALT (SGPT) 15 U/L (8-55); AST (SGOT) 30 U/L (5-34); Albumin 3.5 g/dL (3.4-4.8); Alkaline Phosphatase 129 U/L (40-110); Anion Gap 16 mmol/L (10-20); BUN (Urea Nitrogen) 15 mg/dL (9.8-20.1); Bilirubin, Total 0.5 mg/dL (0.2-1.2); Calc. Creatinine Clearance 0 mL/min (70-130); Calcium 9.9 mg/dL (7.8-10.44); Carbon Dioxide 19 mmol/L (23-31); Chloride 103 mmol/L (98-107); Estimated GFR 71; Globulin 4.9 g/dL (2.4-3.5); Glucose 180 mg/dL (83-110); Protein, Total 8.4 g/dL (5.8-8.1); Sodium 134 mmol/L (136-145)
[2022-11-05 13:14] LABS: Hypochromia SLIGHT = 6-15 cells (100X) (0-5/hpf); MDiff Complete? YES; Macrocytosis MODERATE=16-30 cells (100X) (0-5/hpf); Platelet Morphology Comment Appears Adequate; Polychromasia SLIGHT = 2-3 cells (100X) (0-2/hpf)
[2022-11-05] MEDS ORDERED: Adenosine 6 MG/2 ML VIAL ONE ×2 (14:01→17:31)
[2022-11-05] MEDS ORDERED: Cefepime 2 GM VIAL ONE (14:33)
[2022-11-05] MEDS ORDERED: Iopamidol-370 76% 500 ML 1 ML ONE (15:37)
[2022-11-05] MEDS ORDERED: Ondansetron PF 4 MG/2 ML Vial IVP PRN (18:27)
[2022-11-05] MEDS ORDERED: HYDROcodone/Acetaminophen 5/325 mg Tablet PO PRN (18:27)
[2022-11-05] MEDS ORDERED: Digoxin 0.5 MG/2 ML AMP ONE (18:27)
[2022-11-05] MEDS ORDERED: Ipratropium Bromide 0.06% Nasal Inhaler 15ml EA NARE PRN (18:27)
[2022-11-05] MEDS ORDERED: Benzonatate 100 MG CAP PO PRN (18:27)
[2022-11-05] MEDS ORDERED: Ondansetron ODT 4 MG TAB PO PRN (18:27)
[2022-11-05] MEDS ORDERED: Acetaminophen 500 MG TAB PO PRN (18:27)
[2022-11-05] MEDS: Ipratropium/Albuterol 3 ML NEB NEB SCH ×2 (18:30→22:31)
[2022-11-05] MEDS ORDERED: Digoxin 0.5 MG/2 ML AMP SLOW IVP SCH (18:30)
[2022-11-05 21:14] LABS: Magnesium 1.9 mg/dL (1.6-2.6)
[2022-11-05 22:00] VITALS: BMI 12.8
[2022-11-05] MEDS: Sodium Chloride 0.9% 1,000 ML IV SCH (23:20)
[2022-11-05] MEDS: Famotidine 20 MG TAB PO SCH (23:22)
[2022-11-05] MEDS: Mirtazapine 15 MG TAB PO SCH (23:23)
[2022-11-05] MEDS: traZODone HCl 50 MG TAB PO SCH (23:23)
[2022-11-05] MEDS: Megestrol Acetate 40 MG TAB PO SCH (23:23)
[2022-11-05] MEDS: OLANZapine 5 MG TAB PO SCH (23:23)
[2022-11-06] MEDS: Ipratropium/Albuterol 3 ML NEB NEB SCH ×6 (02:19→22:00)
[2022-11-06] MEDS ORDERED: Digoxin 0.5 MG/2 ML AMP SLOW IVP SCH (03:30)
[2022-11-06 04:48] LABS: Anion Gap 13 mmol/L (10-20); BUN (Urea Nitrogen) 10 mg/dL (9.8-20.1); Calc. Creatinine Clearance 39 mL/min (70-130); Calcium 8.6 mg/dL (7.8-10.44); Carbon Dioxide 15 mmol/L (23-31); Chloride 111 mmol/L (98-107); Estimated GFR 90; Glucose 71 mg/dL (83-110); Magnesium 1.7 mg/dL (1.6-2.6); Potassium 3.4 mmol/L (3.5-5.1); Sodium 136 mmol/L (136-145)
[2022-11-06 05:05] LABS: #Eosinphils 0.1 thou/uL (0.0-0.7); #Lymphocytes 0.9 thou/uL (1.20-3.40); #Monocytes 0.8 thou/uL (0.11-0.59); #Neutrophils 7.7 thou/uL (1.40-6.50); %Basophils 0.3 % (0.0-1.0); %Eosinophils 0.8 % (0.0-10.0); %Lymphocytes 9.2 % (21.0-51.0); %Monocytes 8.7 % (0.0-10.0); Hemoglobin 9.6 g/dL (12.0-16.0); Mean Corpuscular HGB CONC 32.4 g/dL (32.0-36.0); Mean Platelet Volume 7.6 fL (7.4-10.4); Platelet Count 270 10x3/uL (130-400); RBC Distribution Width 14.8 % (11.5-14.5); Red Blood Cell (RBC) Count 2.66 mill/uL (4.20-5.40); White Blood Cell (WBC) Count 9.5 10x3/uL (4.8-10.8)
[2022-11-06] MEDS: Levothyroxine Sodium 50 MCG TAB PO SCH (06:29)
[2022-11-06] MEDS ORDERED: Adenosine 6 MG/2 ML VIAL ONE ×2 (07:55→08:02)
[2022-11-06] MEDS ORDERED: Amiodarone 75 MG, Admixture Fee 1 EACH in Dextrose 5% in Water 100 ML IVPB SCH (08:15)
[2022-11-06] MEDS: Amiodarone 450 MG, Admixture Fee 1 EACH in Dextrose 5% in Water 250 ML IVPB SCH ×2 (08:18→14:08)
[2022-11-06] MEDS: Sodium Chloride 0.9% 1,000 ML IV SCH ×2 (08:18→22:50)
[2022-11-06 08:20] LABS: ALT (SGPT) 12 U/L (8-55); AST (SGOT) 29 U/L (5-34); Albumin 2.5 g/dL (3.4-4.8); Alkaline Phosphatase 88 U/L (40-110); Bilirubin, Direct 0.2 mg/dL (0.1-0.3); Bilirubin, Total 0.3 mg/dL (0.2-1.2); Protein, Total 5.8 g/dL (5.8-8.1)
[2022-11-06] MEDS ORDERED: Potassium Chloride 20 MEQ TAB PO SCH (09:00)
[2022-11-06] MEDS: azaTHIOprine 50 MG TAB PO SCH (11:07)
[2022-11-06] MEDS: Calcium Carbonate 600 MG TAB PO SCH (11:08)
[2022-11-06] MEDS: Famotidine 20 MG TAB PO SCH (11:08)
[2022-11-06] MEDS: Cholecalciferol 1,000 UNITS (25 MCG) TAB PO SCH (11:08)
[2022-11-06] MEDS: Megestrol Acetate 40 MG TAB PO SCH (11:11)
[2022-11-06] MEDS: Multivit, Therapeutic 1 TAB PO SCH (11:12)
[2022-11-06] MEDS: Sertraline 100 MG TAB PO SCH (11:12)
[2022-11-06] MEDS: Dronabinol 2.5 MG CAP PO SCH (17:41)
[2022-11-06] MEDS: Potassium Chloride 10 MEQ TAB PO SCH (20:24)
[2022-11-06] MEDS: OLANZapine 5 MG TAB PO SCH (20:25)
[2022-11-06] MEDS: traZODone HCl 50 MG TAB PO SCH (20:25)
[2022-11-06] MEDS: Mirtazapine 15 MG TAB PO SCH (20:25)
[2022-11-06] MEDS: Docusate 100 MG CAP PO PRN (21:25)
[2022-11-07] MEDS: Ipratropium/Albuterol 3 ML NEB NEB SCH ×3 (02:26→11:07)
[2022-11-07 04:25] LABS: #Eosinphils 0.1 thou/uL (0.0-0.7); #Lymphocytes 0.6 thou/uL (1.20-3.40); #Neutrophils 9.6 thou/uL (1.40-6.50); %Basophils 0.4 % (0.0-1.0); %Eosinophils 0.8 % (0.0-10.0); %Lymphocytes 5.7 % (21.0-51.0); %Monocytes 8.6 % (0.0-10.0); %Neutrophils 84.5 % (42.0-75.0); Hemoglobin 9.3 g/dL (12.0-16.0); Mean Corpuscular HGB CONC 32.9 g/dL (32.0-36.0); Mean Corpuscular Hemoglobin 36.6 pg (27.0-31.0); Mean Platelet Volume 7.3 fL (7.4-10.4); Platelet Count 293 10x3/uL (130-400); RBC Distribution Width 14.7 % (11.5-14.5); Red Blood Cell (RBC) Count 2.55 mill/uL (4.20-5.40); White Blood Cell (WBC) Count 11.3 10x3/uL (4.8-10.8)
[2022-11-07 04:53] LABS: Anion Gap 10 mmol/L (10-20); BUN (Urea Nitrogen) 8 mg/dL (9.8-20.1); Calc. Creatinine Clearance 41 mL/min (70-130); Calcium 8.4 mg/dL (7.8-10.44); Carbon Dioxide 19 mmol/L (23-31); Chloride 110 mmol/L (98-107); Estimated GFR 92; Glucose 214 mg/dL (83-110); Potassium 3.7 mmol/L (3.5-5.1); Sodium 135 mmol/L (136-145)
[2022-11-07] MEDS: Levothyroxine Sodium 50 MCG TAB PO SCH (05:07)
[2022-11-07] MEDS: Amiodarone 450 MG, Admixture Fee 1 EACH in Dextrose 5% in Water 250 ML IVPB SCH (05:31)
[2022-11-07] MEDS ORDERED: Famotidine 20 MG TAB PO SCH (09:00)
[2022-11-07] MEDS: Dronabinol 2.5 MG CAP PO SCH (09:18)
[2022-11-07] MEDS: Potassium Chloride 10 MEQ TAB PO SCH (09:18)
[2022-11-07] MEDS: Sertraline 100 MG TAB PO SCH (09:19)
[2022-11-07] MEDS: azaTHIOprine 50 MG TAB PO SCH (09:19)
[2022-11-07] MEDS: Cholecalciferol 1,000 UNITS (25 MCG) TAB PO SCH (09:19)
[2022-11-07] MEDS: Sodium Chloride 0.9% 1,000 ML IV SCH (09:20)
[2022-11-07] MEDS: Multivit, Therapeutic 1 TAB PO SCH (09:20)
[2022-11-07] MEDS: Calcium Carbonate 600 MG TAB PO SCH (09:20)
[2022-11-07] MEDS: Docusate 100 MG CAP PO PRN (09:29)
[2022-11-07] MEDS ORDERED: Amiodarone 200 MG TAB PO SCH ×2 (11:12→21:00)
[2022-11-07 11:44] VITALS: TEMP 98.3
[2022-11-07 11:47] VITALS: BP 130/64
== END 2022-11-07 14:00 | disposition home or self-care (01) | DRG 193 ==
LOC: ERS 11:22 → ERHOLD 13:22 → 2NO 21:25
PROVIDERS: ADMIT Hospitalist; ATTEND Hospitalist
DX: J15.9 Unspecified bacterial pneumonia (principal); Z20.822 Contact with and (suspected) exposure to COVID-19; Z66 Do not resuscitate; Z51.5 Encounter for palliative care; J96.01 Acute respiratory failure with hypoxia; C34.11 Malignant neoplasm of upper lobe, right bronchus or lung; K50.90 Crohn's disease, unspecified, without complications; Z68.1 Body mass index [BMI] 19.9 or less, adult; I47.1 Supraventricular tachycardia; R64 Cachexia; J44.0 Chronic obstructive pulmonary disease with (acute) lower respiratory infection; R62.7 Adult failure to thrive; I10 Essential (primary) hypertension; R63.0 Anorexia; F41.9 Anxiety disorder, unspecified; F32.A Depression, unspecified; E78.5 Hyperlipidemia, unspecified; K21.9 Gastro-esophageal reflux disease without esophagitis; I25.10 Atherosclerotic heart disease of native coronary artery without angina pectoris; E87.6 Hypokalemia; Z88.5 Allergy status to narcotic agent; Z88.0 Allergy status to penicillin; Z88.8 Allergy status to other drugs, medicaments and biological substances; Z91.09 Other allergy status, other than to drugs and biological substances; I25.2 Old myocardial infarction; Z90.49 Acquired absence of other specified parts of digestive tract; Z90.710 Acquired absence of both cervix and uterus; Z79.899 Other long term (current) drug therapy; Z82.49 Family history of ischemic heart disease and other diseases of the circulatory system; Z90.2 Acquired absence of lung [part of]; Z87.891 Personal history of nicotine dependence; Z86.73 Personal history of transient ischemic attack (TIA), and cerebral infarction without residual deficits; Z86.010 Personal history of colon polyps; Z98.890 Other specified postprocedural states
CPT/HCPCS: 36415; 71045; 71275; 80048; 80053; 80076; 83605; 83735; 83880; 84443; 84484; 85025; 87040; 93005; 93010; 93306; J0153; J0282; J0283; J0692; J1160; J1650; J1956; J7050; J7070; J7500; J7620; Q0167; Q9967; S0179; U0003; U0005